=== PATIENT | male | born 1970 | race Caucasian/White ===

== ENCOUNTER 2017-12-04 05:43 | Inpatient (IN) | payer MEDICAID ==
[~2017-12-04] VITALS: Ht 175.3 cm; Wt 112.4 kg
[~2017-12-04 05:43] MED LIST: AMLO2.5T2 PO; ESCI10TA54 PO; GABA-532 PO; PANT-47 PO; THI100T PO; TRAZ-143 PO
[2017-12-04 06:35] LABS: BASOPHILS % (AUTO) 0.1 % (0-1); EOSINOPHILS # (AUTO) 0.1 X10'3 (0-0.9); EOSINOPHILS % (AUTO) 1.7 % (0-6); HEMATOCRIT 44.5 % (42.0-52.0); HEMOGLOBIN 15.5 g/dl (14.0-17.9); LYMPHOCYTES # (AUTO) 1.2 X10'3 (1.1-4.8); LYMPHOCYTES % (AUTO) 15.6 % (21-51); MEAN CORPUSCULAR HEMOGLOBIN 29.9 PG (27.0-31.0); MEAN CORPUSCULAR HGB CONC 34.8 % (33.0-36.5); MEAN PLATELET VOLUME 7.5 FL (7.4-10.4); MONOCYTES # (AUTO) 0.4 X10'3 (0-0.9); MONOCYTES % (AUTO) 5.4 % (2-12); NEUTROPHILS % (AUTO) 77.2 % (42-75); PLATELET COUNT 193 X10'3 (140-440); RED BLOOD COUNT 5.18 X10'6 (4.70-6.10); RED CELL DISTRIBUTION WIDTH 13.7 % (11.5-14.5); WHITE BLOOD COUNT 7.8 X10'3 (4.5-11.0)
[2017-12-04] MEDS ORDERED: octreotide 100mcg/1 ml ampule IV ONE (06:35)
[2017-12-04] MEDS ORDERED: pantoprazole 40MG/NS 100ML BAG 100 ML IV ONE (06:35)
[2017-12-04] MEDS ORDERED: normal saline 1000ML IV soln IVB ONE (06:35)
[2017-12-04] MEDS ORDERED: morphine 4 MG/ML inj SYRINge IV ONE (06:35)
[2017-12-04 06:41] LABS: PARTIAL THROMBOPLASTIN TIME 26 SECONDS (22-32); PROTHROMBIN TIME 10.4 SECONDS (9.0-12.0)
[2017-12-04 06:47] LABS: ALANINE AMINOTRANSFERASE 68 U/L (12-78); ALBUMIN 2.9 G/DL (3.4-5.0); ALBUMIN/GLOBULIN RATIO 0.7 (1.1-1.5); ALKALINE PHOSPHATASE 192 IU/L (46-116); ANION GAP 15 (8-16); ASPARTATE AMINO TRANSFERASE 67 U/L (10-37); BILIRUBIN,TOTAL 0.6 MG/DL (0.1-1.0); BLOOD UREA NITROGEN 7 MG/DL (7-18); BUN/CREATININE RATIO 5.9 (5.4-32.0); CALCIUM 8.2 MG/DL (8.5-10.1); CHLORIDE 92 MMOL/L (99-107); CREATININE 1.18 MG/DL (0.60-1.10); ETHANOL 0.128 GM/DL (0.0-0.010); GLUCOSE 180 MG/DL (70-104); LIPASE 522 U/L (73-393); MAGNESIUM 1.9 MG/DL (1.5-2.4); POTASSIUM 4.4 MMOL/L (3.5-5.1); SODIUM 126 MMOL/L (135-145); TOTAL CARBON DIOXIDE 19.3 MMOL/L (24-32); TOTAL PROTEIN 7.2 G/DL (6.4-8.2); eGFR 67 ML/MIN
[2017-12-04 07:29] LABS: CLARITY,URINE Clear (Clear); GLUCOSE, URINE Negative (Neg); KETONES,URINE Negative (Neg); LEUKOCYTE ESTERASE ,URINE Negative (Neg); NITRITES, URINE Negative (Neg); OCCULT BLOOD,URINE Small (Neg); PROTEIN,URINE 100 mg/dl (Neg); UROBILINOGEN,URINE 0.2 E.U/dL (0.2-1.0)
[2017-12-04] MEDS ORDERED: iohexol 300mg/ml 100ml inj. ONE (07:30)
[2017-12-04 07:35] LABS: COLOR,URINE STRAW (Yellow); UA COLLECTION TYPE URINAL
[2017-12-04 07:37] LABS: BACTERIA,URINE NONE SEEN /HPF (Neg); COARSE GRANULAR CAST 0-3 /LPF (NEGATIVE); MUCUS STRANDS NONE SEEN /LPF (Neg); RBC,URINE 0-2 /HPF (0-2); SQUAMOUS EPITHELIAL CELL,UR FEW /LPF (FEW); WBC,URINE NONE SEEN /HPF (0-4)
[2017-12-04] MEDS ORDERED: ondansetron/PF 4mg/2ml inj IV ONE (07:55)
[2017-12-04] MEDS ORDERED: ondansetron/PF 4mg/2ml inj IV PRN (09:10)
[2017-12-04] MEDS ORDERED: magnesium hydroxide 30ml (MOM) UD suspension PO PRN (09:10)
[2017-12-04] MEDS ORDERED: mag hydrox/Alum hydrox/simeth 30ml oral suspension PO PRN (09:10)
[2017-12-04] MEDS ORDERED: morphine 4 MG/ML inj SYRINge IV PRN (09:10)
[2017-12-04] MEDS ORDERED: acetaminophen 325mg tablet PO PRN (09:10)
[2017-12-04] MEDS: citalopram 20mg tablet PO SCH (10:00)
[2017-12-04] MEDS: ondansetron inj. 24 MG in normal saline 250ml IV soln 228 ML IV SCH (10:10)
[2017-12-04] MEDS: octreotide inj. 1,250 MCG in normal saline 250ml IV soln 243.75 ML IV SCH (10:11)
[2017-12-04] MEDS: normal saline 1000ml 1,000 ML IV SCH ×3 (10:11→22:25)
[2017-12-04 10:23] LABS: HEMOGLOBIN A1C 10.3 % (4.5-6.2)
[2017-12-04] MEDS: pantoprazole 40MG/NS 100ML BAG 100 ML IV SCH ×3 (12:05→21:40)
[2017-12-04] MEDS: morphine 4 MG/ML inj SYRINge IV PRN ×2 (12:05→19:23)
[2017-12-04] MEDS: gabapentin 300mg capsule PO SCH ×2 (13:00→20:54)
[2017-12-04] MEDS ORDERED: metoprolol tartrate 1mg/ml inj IV SCH (14:00)
[2017-12-04] MEDS ORDERED: thiamine inj. 100 MG in normal saline 100ml IV soln 100 ML IV ONE (14:10)
[2017-12-04] MEDS: thiamine 100mg tablet PO SCH (14:17)
[2017-12-04] MEDS: enalaprilat dihydrate 2.5mg/2ml vial IV SCH ×2 (14:31→20:55)
[2017-12-04] MEDS: LORazepam 2 mg/ml vial IV PRN ×2 (14:31→22:33)
[2017-12-04] MEDS: folic acid inj. 2 MG, MVI, adult No.4 with vit. K 10 ML in dextrose 5% water 500ml 500 ML IV SCH ×3 (15:50)
[2017-12-04 18:00] VITALS: BP 126/88
[2017-12-04 18:05] VITALS: BP 145/77
[2017-12-04] MEDS ORDERED: METOPROLOL TARTRATE IV SCH (20:00)
[2017-12-04] MEDS ORDERED: NORMAL SALINE IV SCH (20:00)
[2017-12-04] MEDS: metoprolol tartrate 12.5mg (1/2 tablet) PO SCH (20:54)
[2017-12-04] MEDS: NYSTATIN CREAM - 30GM TUBE TP SCH (20:54)
[2017-12-04] MEDS: traZODone 50mg tablet PO SCH (20:54)
[2017-12-04] MEDS ORDERED: MESSAGE TO PHARMACY PO ONE (22:15)
[2017-12-04] MEDS ORDERED: dextrose ORAL solution 15 GM/59 ML bottle PO PRN ×2 (22:15)
[2017-12-04] MEDS ORDERED: glucagon, human recombinant 1mg kit SUBCUT PRN (22:15)
[2017-12-04] MEDS ORDERED: dextrose 50%-water 50ml dispensing syringe IV PRN ×2 (22:15)
[2017-12-05] VITALS (8 sets, daily range): BP systolic 103–190; BP diastolic 70–100
[2017-12-05] MEDS: pantoprazole 40MG/NS 100ML BAG 100 ML IV SCH ×6 (01:40→23:45)
[2017-12-05] MEDS: enalaprilat dihydrate 2.5mg/2ml vial IV SCH ×4 (01:40→21:06)
[2017-12-05] MEDS: normal saline 1000ml 1,000 ML IV SCH ×4 (05:11→23:44)
[2017-12-05 05:26] LABS: BASOPHILS % (AUTO) 0.3 % (0-1); EOSINOPHILS # (AUTO) 0.2 X10'3 (0-0.9); EOSINOPHILS % (AUTO) 2.8 % (0-6); HEMATOCRIT 41.3 % (42.0-52.0); HEMOGLOBIN 14.4 g/dl (14.0-17.9); LYMPHOCYTES # (AUTO) 1.4 X10'3 (1.1-4.8); LYMPHOCYTES % (AUTO) 19.4 % (21-51); MEAN CORPUSCULAR HEMOGLOBIN 30.4 PG (27.0-31.0); MEAN CORPUSCULAR VOLUME 87.1 FL (78-98); MEAN PLATELET VOLUME 7.8 FL (7.4-10.4); MONOCYTES # (AUTO) 0.5 X10'3 (0-0.9); MONOCYTES % (AUTO) 7.2 % (2-12); NEUTROPHILS # (AUTO) 5.2 X10'3 (1.8-7.7); NEUTROPHILS % (AUTO) 70.3 % (42-75); PLATELET COUNT 156 X10'3 (140-440); RED BLOOD COUNT 4.74 X10'6 (4.70-6.10); RED CELL DISTRIBUTION WIDTH 14.1 % (11.5-14.5); WHITE BLOOD COUNT 7.4 X10'3 (4.5-11.0)
[2017-12-05 05:34] LABS: PROTHROMBIN TIME 10.8 SECONDS (9.0-12.0)
[2017-12-05 05:45] LABS: ALANINE AMINOTRANSFERASE 55 U/L (12-78); ALBUMIN 2.7 G/DL (3.4-5.0); ALBUMIN/GLOBULIN RATIO 0.7 (1.1-1.5); ALKALINE PHOSPHATASE 172 IU/L (46-116); AMYLASE 52 U/L (25-115); ANION GAP 9 (8-16); ASPARTATE AMINO TRANSFERASE 38 U/L (10-37); BILIRUBIN,TOTAL 0.7 MG/DL (0.1-1.0); BLOOD UREA NITROGEN 14 MG/DL (7-18); BUN/CREATININE RATIO 9.7 (5.4-32.0); CALCIUM 8.3 MG/DL (8.5-10.1); CHLORIDE 101 MMOL/L (99-107); CHOL/HDL RATIO 2.3 (0.00-4.99); CHOLESTEROL 169 MG/DL (0-200); CREATININE 1.45 MG/DL (0.60-1.10); GLUCOSE 188 MG/DL (70-104); HDL CHOLESTEROL 75 MG/DL (35-60); LDL CHOLESTEROL 71 MG/DL (50-100); LIPASE 427 U/L (73-393); MAGNESIUM 2.1 MG/DL (1.5-2.4); PHOSPHORUS 2.7 MG/DL (2.3-4.5); POTASSIUM 4.7 MMOL/L (3.5-5.1); SODIUM 135 MMOL/L (135-145); TOTAL CARBON DIOXIDE 24.9 MMOL/L (24-32); TOTAL PROTEIN 6.6 G/DL (6.4-8.2); TRIGLYCERIDES 131 MG/DL (20-135); eGFR 53 ML/MIN
[2017-12-05] MEDS: morphine 4 MG/ML inj SYRINge IV PRN ×2 (07:37→21:36)
[2017-12-05] MEDS: citalopram 20mg tablet PO SCH (07:40)
[2017-12-05] MEDS: metoprolol tartrate 12.5mg (1/2 tablet) PO SCH ×2 (07:40→21:06)
[2017-12-05] MEDS: atorvastatin 20mg tablet PO SCH (07:40)
[2017-12-05] MEDS: gabapentin 300mg capsule PO SCH ×3 (07:41→21:07)
[2017-12-05] MEDS: thiamine 100mg tablet PO SCH (07:41)
[2017-12-05] MEDS: NYSTATIN CREAM - 30GM TUBE TP SCH ×2 (08:00→22:54)
[2017-12-05] MEDS ORDERED: thiamine 100mg tablet PO SCH (08:00)
[2017-12-05] MEDS: ondansetron inj. 24 MG in normal saline 250ml IV soln 228 ML IV SCH (09:05)
[2017-12-05] MEDS: folic acid inj. 2 MG, MVI, adult No.4 with vit. K 10 ML in dextrose 5% water 500ml 500 ML IV SCH ×3 (09:08)
[2017-12-05] MEDS: LORazepam 2 mg/ml vial IV PRN ×3 (09:09→21:34)
[2017-12-05] MEDS: octreotide inj. 1,250 MCG in normal saline 250ml IV soln 243.75 ML IV SCH (09:11)
[2017-12-05] MEDS ORDERED: fentaNYL/PF 50MCG/1 ML 2ML syringe ONE ×2 (09:46→10:06)
[2017-12-05] MEDS ORDERED: LIDOcaine Viscous 15ml cup ONE ×2 (09:47→10:06)
[2017-12-05] MEDS ORDERED: MIDAZolam 5mg/ml 2ml vial ONE ×2 (09:47→10:06)
[2017-12-05] MEDS: insulin Lispro (HumaLOG) vial - multi-dose SQ SCH ×2 (13:31→22:52)
[2017-12-05] MEDS ORDERED: amLODIPine 5mg tablet PO ONE (14:10)
[2017-12-05] MEDS: traZODone 50mg tablet PO SCH (21:07)
[2017-12-05] MEDS: insulin glargine (Lantus) pen - multi-dose SQ SCH (22:54)
[2017-12-06] VITALS (9 sets, daily range): BP systolic 121–195; BP diastolic 86–106
[2017-12-06] MEDS: enalaprilat dihydrate 2.5mg/2ml vial IV SCH ×4 (02:41→21:27)
[2017-12-06] MEDS: LORazepam 2 mg/ml vial IV PRN (03:17)
[2017-12-06] MEDS: morphine 4 MG/ML inj SYRINge IV PRN ×3 (03:17→21:25)
[2017-12-06 05:17] LABS: BASOPHILS % (AUTO) 0.2 % (0-1); EOSINOPHILS # (AUTO) 0.2 X10'3 (0-0.9); EOSINOPHILS % (AUTO) 3.6 % (0-6); HEMATOCRIT 41.7 % (42.0-52.0); HEMOGLOBIN 14.3 g/dl (14.0-17.9); LYMPHOCYTES # (AUTO) 1.3 X10'3 (1.1-4.8); MEAN CORPUSCULAR HEMOGLOBIN 30.1 PG (27.0-31.0); MEAN CORPUSCULAR HGB CONC 34.4 % (33.0-36.5); MEAN CORPUSCULAR VOLUME 87.5 FL (78-98); MEAN PLATELET VOLUME 7.7 FL (7.4-10.4); MONOCYTES # (AUTO) 0.5 X10'3 (0-0.9); MONOCYTES % (AUTO) 7.5 % (2-12); NEUTROPHILS # (AUTO) 4.2 X10'3 (1.8-7.7); NEUTROPHILS % (AUTO) 67.7 % (42-75); PLATELET COUNT 140 X10'3 (140-440); RED BLOOD COUNT 4.76 X10'6 (4.70-6.10); RED CELL DISTRIBUTION WIDTH 13.8 % (11.5-14.5); WHITE BLOOD COUNT 6.2 X10'3 (4.5-11.0)
[2017-12-06 05:30] LABS: PROTHROMBIN TIME 10.5 SECONDS (9.0-12.0)
[2017-12-06 05:43] LABS: ALANINE AMINOTRANSFERASE 46 U/L (12-78); ALBUMIN 2.7 G/DL (3.4-5.0); ALBUMIN/GLOBULIN RATIO 0.7 (1.1-1.5); ALKALINE PHOSPHATASE 166 IU/L (46-116); AMYLASE 39 U/L (25-115); ANION GAP 9 (8-16); ASPARTATE AMINO TRANSFERASE 30 U/L (10-37); BILIRUBIN,TOTAL 0.5 MG/DL (0.1-1.0); BLOOD UREA NITROGEN 10 MG/DL (7-18); BUN/CREATININE RATIO 7.4 (5.4-32.0); CALCIUM 8.2 MG/DL (8.5-10.1); CHLORIDE 103 MMOL/L (99-107); CREATININE 1.35 MG/DL (0.60-1.10); GLUCOSE 204 MG/DL (70-104); LIPASE 258 U/L (73-393); MAGNESIUM 1.9 MG/DL (1.5-2.4); PHOSPHORUS 2.8 MG/DL (2.3-4.5); POTASSIUM 4.2 MMOL/L (3.5-5.1); SODIUM 138 MMOL/L (135-145); TOTAL CARBON DIOXIDE 25.7 MMOL/L (24-32); TOTAL PROTEIN 6.6 G/DL (6.4-8.2); eGFR 57 ML/MIN
[2017-12-06] MEDS: pantoprazole 40MG/NS 100ML BAG 100 ML IV SCH (06:06)
[2017-12-06] MEDS: normal saline 1000ml 1,000 ML IV SCH ×3 (06:06→21:35)
[2017-12-06] MEDS: metoprolol tartrate 12.5mg (1/2 tablet) PO SCH ×2 (07:25→21:25)
[2017-12-06] MEDS: citalopram 20mg tablet PO SCH (07:25)
[2017-12-06] MEDS: thiamine 100mg tablet PO SCH (07:25)
[2017-12-06] MEDS: atorvastatin 20mg tablet PO SCH (07:26)
[2017-12-06] MEDS: gabapentin 300mg capsule PO SCH ×3 (07:26→21:26)
[2017-12-06] MEDS: folic acid 1mg tablet PO SCH (07:26)
[2017-12-06] MEDS: NYSTATIN CREAM - 30GM TUBE TP SCH ×2 (07:28→21:27)
[2017-12-06] MEDS: folic acid inj. 2 MG, MVI, adult No.4 with vit. K 10 ML in dextrose 5% water 500ml 500 ML IV SCH ×3 (07:31)
[2017-12-06] MEDS ORDERED: amLODIPine 5mg tablet PO SCH (08:00)
[2017-12-06] MEDS: ondansetron inj. 24 MG in normal saline 250ml IV soln 228 ML IV SCH (10:01)
[2017-12-06] MEDS: insulin Lispro (HumaLOG) vial - multi-dose SQ SCH (10:04)
[2017-12-06] MEDS ORDERED: amLODIPine 5mg tablet PO ONE (12:56)
[2017-12-06] MEDS ORDERED: hydrALAZINE 20mg/ml inj. IV ONE (15:25)
[2017-12-06] MEDS: traZODone 50mg tablet PO SCH (21:25)
[2017-12-06] MEDS: pantoprazole 40mg Tablet.DR PO SCH (21:26)
[2017-12-06] MEDS: insulin glargine (Lantus) pen - multi-dose SQ SCH (21:30)
[2017-12-07] VITALS: BP 145/76
[2017-12-07 03:00] VITALS: BP 139/69
[2017-12-07] MEDS: morphine 4 MG/ML inj SYRINge IV PRN ×2 (03:16→09:50)
[2017-12-07] MEDS: enalaprilat dihydrate 2.5mg/2ml vial IV SCH ×2 (03:17→08:10)
[2017-12-07] MEDS: normal saline 1000ml 1,000 ML IV SCH (03:19)
[2017-12-07 05:09] LABS: BASOPHILS % (AUTO) 0.2 % (0-1); EOSINOPHILS # (AUTO) 0.2 X10'3 (0-0.9); EOSINOPHILS % (AUTO) 3.4 % (0-6); HEMATOCRIT 39.8 % (42.0-52.0); LYMPHOCYTES # (AUTO) 1.5 X10'3 (1.1-4.8); LYMPHOCYTES % (AUTO) 22.4 % (21-51); MEAN CORPUSCULAR HEMOGLOBIN 30.4 PG (27.0-31.0); MEAN CORPUSCULAR VOLUME 86.7 FL (78-98); MEAN PLATELET VOLUME 7.5 FL (7.4-10.4); MONOCYTES # (AUTO) 0.5 X10'3 (0-0.9); MONOCYTES % (AUTO) 8.2 % (2-12); NEUTROPHILS # (AUTO) 4.4 X10'3 (1.8-7.7); NEUTROPHILS % (AUTO) 65.8 % (42-75); PLATELET COUNT 138 X10'3 (140-440); RED BLOOD COUNT 4.59 X10'6 (4.70-6.10); RED CELL DISTRIBUTION WIDTH 13.8 % (11.5-14.5); WHITE BLOOD COUNT 6.6 X10'3 (4.5-11.0)
[2017-12-07 05:15] LABS: PROTHROMBIN TIME 10.1 SECONDS (9.0-12.0)
[2017-12-07 05:23] LABS: ALANINE AMINOTRANSFERASE 50 U/L (12-78); ALBUMIN 2.7 G/DL (3.4-5.0); ALBUMIN/GLOBULIN RATIO 0.7 (1.1-1.5); ALKALINE PHOSPHATASE 156 IU/L (46-116); AMYLASE 39 U/L (25-115); ANION GAP 11 (8-16); ASPARTATE AMINO TRANSFERASE 34 U/L (10-37); BILIRUBIN,TOTAL 0.5 MG/DL (0.1-1.0); BLOOD UREA NITROGEN 10 MG/DL (7-18); BUN/CREATININE RATIO 7.4 (5.4-32.0); CALCIUM 8.4 MG/DL (8.5-10.1); CHLORIDE 103 MMOL/L (99-107); CREATININE 1.35 MG/DL (0.60-1.10); GLUCOSE 175 MG/DL (70-104); LIPASE 232 U/L (73-393); MAGNESIUM 1.6 MG/DL (1.5-2.4); PHOSPHORUS 3.2 MG/DL (2.3-4.5); POTASSIUM 3.8 MMOL/L (3.5-5.1); SODIUM 140 MMOL/L (135-145); TOTAL CARBON DIOXIDE 26.2 MMOL/L (24-32); TOTAL PROTEIN 6.6 G/DL (6.4-8.2); eGFR 57 ML/MIN
[2017-12-07 07:50] VITALS: BP 157/85
[2017-12-07] MEDS: gabapentin 300mg capsule PO SCH (07:58)
[2017-12-07] MEDS: metoprolol tartrate 12.5mg (1/2 tablet) PO SCH (07:59)
[2017-12-07] MEDS ORDERED: amLODIPine 5mg tablet PO SCH (08:00)
[2017-12-07] MEDS ORDERED: multivitamins, therapeutics tablet PO SCH (08:00)
[2017-12-07] MEDS: pantoprazole 40mg Tablet.DR PO SCH (08:01)
[2017-12-07] MEDS: folic acid 1mg tablet PO SCH (08:01)
[2017-12-07] MEDS: thiamine 100mg tablet PO SCH (08:01)
[2017-12-07] MEDS: citalopram 20mg tablet PO SCH (08:01)
[2017-12-07] MEDS: atorvastatin 20mg tablet PO SCH (08:01)
[2017-12-07] MEDS: NYSTATIN CREAM - 30GM TUBE TP SCH (08:03)
[2017-12-07] MEDS: insulin Lispro (HumaLOG) vial - multi-dose SQ SCH (09:14)
[2017-12-07 11:00] VITALS: BP 147/87
[2017-12-07] MEDS ORDERED: GLIP5TAB13 PO (12:22)
[2017-12-07] MEDS ORDERED: METO-395 PO (12:22)
[2017-12-07] MEDS ORDERED: PANT-47 PO (12:22)
== END 2017-12-07 13:24 | disposition home or self-care (01) | DRG 243 ==
LOC: ER 05:44 → ED HOLD 09:07 → EDBEDREQ 17:07 → SUR 3N 18:12
PROVIDERS: ADMIT Legal Medicine; ATTEND Family Medicine
PROC: 0DB58ZX Excision of Esophagus, Via Natural or Artificial Opening Endoscopic, Diagnostic (ICD-10-PCS; principal; 2017-12-05)
DX: K21.0 Gastro-esophageal reflux disease with esophagitis (principal); N17.0 Acute kidney failure with tubular necrosis; K85.90 Acute pancreatitis without necrosis or infection, unspecified; E11.22 Type 2 diabetes mellitus with diabetic chronic kidney disease; K70.0 Alcoholic fatty liver; K70.30 Alcoholic cirrhosis of liver without ascites; E87.1 Hypo-osmolality and hyponatremia; K22.8 Other specified diseases of esophagus; K22.10 Ulcer of esophagus without bleeding; F17.210 Nicotine dependence, cigarettes, uncomplicated; E86.0 Dehydration; F10.20 Alcohol dependence, uncomplicated; F12.90 Cannabis use, unspecified, uncomplicated; G40.909 Epilepsy, unspecified, not intractable, without status epilepticus; F32.9 Major depressive disorder, single episode, unspecified; G89.29 Other chronic pain; R29.890 Loss of height; M54.9 Dorsalgia, unspecified; Z60.2 Problems related to living alone; I12.9 Hypertensive chronic kidney disease with stage 1 through stage 4 chronic kidney disease, or unspecified chronic kidney disease; N18.9 Chronic kidney disease, unspecified; Z77.120 Contact with and (suspected) exposure to mold (toxic); Z80.1 Family history of malignant neoplasm of trachea, bronchus and lung; Z80.42 Family history of malignant neoplasm of prostate; Z99.3 Dependence on wheelchair; Z79.4 Long term (current) use of insulin
CPT/HCPCS: 36415; 43239; 71045; 74177; 80053; 80061; 80320; 81001; 82140; 82150; 82948; 83036; 83690; 83735; 84100; 84484; 85025; 85610; 85730; 86885; 86900; 86901; 87070; 88305; 88312; 93005; 96361; 96365; 96375; 97110; 97116; 97162; 99285; A4620; C9113; G0500; J0360; J1815; J2060; J2250; J2270; J2354; J2405; J3010; J3490; J7030; J7040; J7060; Q9967

== ENCOUNTER 2017-12-12 23:40 | Emergency (ER) | payer MEDICAID, OTHER ==
[~2017-12-12] VITALS: Ht 180.3 cm; Wt 113.6 kg
[~2017-12-12 23:40] MED LIST changes: +GLIP5TAB13 PO; +METO-395 PO
[2017-12-13] MEDS ORDERED: thiamine 100mg/ml 2ml inj. IV ONE (00:05)
[2017-12-13] MEDS ORDERED: normal saline 1000ML IV soln IVB ONE (00:05)
[2017-12-13 01:04] LABS: PARTIAL THROMBOPLASTIN TIME 27 SECONDS (22-32); PROTHROMBIN TIME 10.3 SECONDS (9.0-12.0)
[2017-12-13 01:05] LABS: BASOPHILS # (AUTO) 0.1 X10'3 (0-0.2); BASOPHILS % (AUTO) 0.7 % (0-1); EOSINOPHILS % (AUTO) 0.2 % (0-6); HEMATOCRIT 50.2 % (42.0-52.0); HEMOGLOBIN 16.5 g/dl (14.0-17.9); LYMPHOCYTES # (AUTO) 1.8 X10'3 (1.1-4.8); MEAN CORPUSCULAR HEMOGLOBIN 28.9 PG (27.0-31.0); MEAN CORPUSCULAR HGB CONC 32.9 % (33.0-36.5); MEAN CORPUSCULAR VOLUME 87.7 FL (78-98); MEAN PLATELET VOLUME 7.9 FL (7.4-10.4); MONOCYTES % (AUTO) 7.3 % (2-12); NEUTROPHILS # (AUTO) 10.2 X10'3 (1.8-7.7); NEUTROPHILS % (AUTO) 77.8 % (42-75); PLATELET COUNT 238 X10'3 (140-440); RED BLOOD COUNT 5.72 X10'6 (4.70-6.10); RED CELL DISTRIBUTION WIDTH 13.5 % (11.5-14.5); WHITE BLOOD COUNT 13.1 X10'3 (4.5-11.0)
[2017-12-13 01:18] LABS: ALANINE AMINOTRANSFERASE 56 U/L (12-78); ALBUMIN 3.4 G/DL (3.4-5.0); ALBUMIN/GLOBULIN RATIO 0.8 (1.1-1.5); ALKALINE PHOSPHATASE 208 IU/L (46-116); ANION GAP 16 (8-16); ASPARTATE AMINO TRANSFERASE 32 U/L (10-37); BILIRUBIN,TOTAL 0.5 MG/DL (0.1-1.0); BLOOD UREA NITROGEN 10 MG/DL (7-18); BUN/CREATININE RATIO 8.5 (5.4-32.0); CALCIUM 8.4 MG/DL (8.5-10.1); CHLORIDE 96 MMOL/L (99-107); CREATININE 1.17 MG/DL (0.60-1.10); ETHANOL 0.255 GM/DL (0.0-0.010); GLUCOSE 176 MG/DL (70-104); MAGNESIUM 1.9 MG/DL (1.5-2.4); PHOSPHORUS 2.2 MG/DL (2.3-4.5); POTASSIUM 4.4 MMOL/L (3.5-5.1); SODIUM 133 MMOL/L (135-145); TOTAL CARBON DIOXIDE 21.3 MMOL/L (24-32); TOTAL PROTEIN 7.8 G/DL (6.4-8.2); eGFR 67 ML/MIN
[2017-12-13 01:21] LABS: ACETAMINOPHEN < 2.0 UG/ML (10-30)
[2017-12-13 01:33] LABS: CLARITY,URINE CLEAR (Clear); COLOR,URINE YELLOW (Yellow); GLUCOSE, URINE NEGATIVE (Neg); KETONES,URINE NEGATIVE (Neg); LEUKOCYTE ESTERASE ,URINE NEGATIVE (Neg); NITRITES, URINE NEGATIVE (Neg); OCCULT BLOOD,URINE SMALL (Neg); PH,URINE 5.5 (4.8-8.0); PROTEIN,URINE 30 mg/dl (Neg); UROBILINOGEN,URINE 0.2 E.U/dL (0.2-1.0)
[2017-12-13 01:39] LABS: UA COLLECTION TYPE STRAIGHT CATH
[2017-12-13 01:40] LABS: BACTERIA,URINE NONE SEEN /HPF (Neg); RBC,URINE 0-2 /HPF (0-2); SQUAMOUS EPITHELIAL CELL,UR FEW /LPF (FEW); URINE AMPHETAMINE SCREEN NEGATIVE (Neg); URINE BARBITUATE SCREEN NEGATIVE (Neg); URINE BENZODIAZEPINES SCREEN NEGATIVE (Neg); URINE CANNABINOID SCREEN NEGATIVE (Neg); URINE COCAINE SCREEN NEGATIVE (Neg); URINE METHADONE SCREEN NEGATIVE (Neg); URINE OPIATE SCREEN NEGATIVE (Neg); URINE PHENCYCLIDINE SCREEN NEGATIVE (Neg); WBC,URINE NONE SEEN /HPF (0-4)
[2017-12-13] MEDS ORDERED: ondansetron/PF 4mg/2ml inj IV ONE (02:10)
[2017-12-13 03:04] VITALS: BP 141/62
== END 2017-12-13 03:06 | disposition home or self-care (01) ==
LOC: ER 23:40
DX: F10.229 Alcohol dependence with intoxication, unspecified (principal); I10 Essential (primary) hypertension; E11.9 Type 2 diabetes mellitus without complications; G89.29 Other chronic pain; F12.10 Cannabis abuse, uncomplicated; F14.10 Cocaine abuse, uncomplicated; Z60.2 Problems related to living alone; Z79.899 Other long term (current) drug therapy; Y90.0 Blood alcohol level of less than 20 mg/100 ml
CPT/HCPCS: 36415; 70450; 80053; 80305; 80320; 80329; 81001; 83735; 84100; 84443; 85025; 85610; 85730; 93005; 96361; 96374; 96375; 99285; A4353; J2405; J3411; J7030

== ENCOUNTER 2020-03-07 20:48 | Inpatient (IN) | payer MEDICARE ==
[~2020-03-07] VITALS: Ht 175.3 cm; Wt 121.2 kg
[~2020-03-07 20:48] MED LIST changes: -ESCI10TA54 PO; +ESCI10TA61 PO; -TRAZ-143 PO; +TRAZ-251 PO
[2020-03-07 21:31] LABS: BASOPHILS # (AUTO) 0.1 X10'3 (0-0.2); BASOPHILS % (AUTO) 0.7 % (0-1); EOSINOPHILS # (AUTO) 0.1 X10'3 (0-0.9); EOSINOPHILS % (AUTO) 0.9 % (0-6); HEMATOCRIT 37.2 % (42.0-52.0); HEMOGLOBIN 12.2 g/dl (14.0-17.9); LYMPHOCYTES # (AUTO) 1.6 X10'3 (1.1-4.8); LYMPHOCYTES % (AUTO) 12.8 % (21-51); MEAN CORPUSCULAR HEMOGLOBIN 29.2 PG (27.0-31.0); MEAN CORPUSCULAR HGB CONC 32.8 g/dL (33.0-36.5); MEAN CORPUSCULAR VOLUME 88.9 FL (78-98); MEAN PLATELET VOLUME 8.7 FL (7.4-10.4); MONOCYTES # (AUTO) 1.4 X10'3 (0-0.9); MONOCYTES % (AUTO) 11.9 % (2-12); NEUTROPHILS % (AUTO) 73.7 % (42-75); PLATELET COUNT 232 X10'3 (140-440); RED BLOOD COUNT 4.18 X10'6 (4.70-6.10); RED CELL DISTRIBUTION WIDTH 13.7 % (11.5-14.5); WHITE BLOOD COUNT 12.2 X10'3 (4.5-11.0)
[2020-03-07 21:42] LABS: ALANINE AMINOTRANSFERASE 22 U/L (12-78); ALBUMIN/GLOBULIN RATIO 0.4 (1.1-1.5); ALKALINE PHOSPHATASE 142 IU/L (46-116); ANION GAP 11 (8-16); ASPARTATE AMINO TRANSFERASE 19 U/L (10-37); BILIRUBIN,TOTAL 0.6 MG/DL (0.1-1.0); BLOOD UREA NITROGEN 25 MG/DL (7-18); BUN/CREATININE RATIO 13.6 (5.4-32.0); CHLORIDE 98 MMOL/L (99-107); CREATININE 1.84 MG/DL (0.60-1.10); GLUCOSE 326 MG/DL (70-104); SODIUM 131 MMOL/L (135-145); TOTAL CARBON DIOXIDE 22.2 MMOL/L (24-32); TOTAL PROTEIN 7.2 G/DL (6.4-8.2); eGFR 40 ML/MIN
[2020-03-07 21:54] LABS: TOTAL CELLS COUNTED 100
[2020-03-07 21:55] LABS: PLATELET ESTIMATE NORMAL
[2020-03-07] MEDS ORDERED: VANCOMYCIN 1,500MG inj. 1,500 MG in normal saline 500ml IV soln 500 ML IV STA (23:18)
[2020-03-07] MEDS ORDERED: normal saline 1000ML IV soln IVB ONE (23:35)
[2020-03-07 23:43] LABS: ETHANOL < 0.010 GM/DL (0.0-0.010); LIPASE 120 U/L (73-393); MAGNESIUM 1.6 MG/DL (1.5-2.4)
[2020-03-07] MEDS ORDERED: iohexol 300mg/ml 100ml inj. ONE (23:45)
[2020-03-07 23:47] LABS: PARTIAL THROMBOPLASTIN TIME 29 SECONDS (22-32)
[2020-03-07] MEDS ORDERED: LORazepam 2 mg/ml vial IV ONE (23:55)
[2020-03-08] VITALS (28 sets, daily range): BP systolic 114–161; BP diastolic 60–87
[2020-03-08] LABS: ABG BASE EXCESS -2.3 mmol/L (-2.0-3.0); ABG HCO3 21.1 mmol/L (22.0-26.0); ABG OXYGEN SATURATION 95.9 % (95-98); ABG PCO2 (T) 33.8 mmHg (35.0-45.0); ABG PO2 (T) 88.7 mmHg (83-108); ALLEN'S TEST POSITIVE; FCOHb 1.7 % (0.5-1.5); FMetHb 0.1 % (0.3-1.12); FO2Hb 94.2 % (94-100); PATIENT TEMPERATURE 38.2; TOTAL HEMOGLOBIN 12.2 G/dl (14.0-17.9)
[2020-03-08 00:48] LABS: CLARITY,URINE SLIGHTLY CLOUDY (Clear); COLOR,URINE YELLOW (Yellow); GLUCOSE, URINE >=1000 mg/dl (Neg); KETONES,URINE TRACE mg/dl (Neg); LEUKOCYTE ESTERASE ,URINE NEGATIVE (Neg); NITRITES, URINE NEGATIVE (Neg); OCCULT BLOOD,URINE TRACE-INTACT (Neg); PH,URINE 5.5 (4.8-8.0); PROTEIN,URINE >=300 mg/dl (Neg); UA COLLECTION TYPE URINAL
[2020-03-08 00:53] LABS: BACTERIA,URINE NONE SEEN /HPF (Neg); RBC,URINE NONE SEEN /HPF (0-2); SQUAMOUS EPITHELIAL CELL,UR FEW /LPF (FEW); WBC,URINE NONE SEEN /HPF (0-4)
[2020-03-08 01:01] LABS: URINE AMPHETAMINE SCREEN NEGATIVE (Neg); URINE BARBITUATE SCREEN NEGATIVE (Neg); URINE BENZODIAZEPINES SCREEN NEGATIVE (Neg); URINE CANNABINOID SCREEN NEGATIVE (Neg); URINE COCAINE SCREEN NEGATIVE (Neg); URINE METHADONE SCREEN NEGATIVE (Neg); URINE OPIATE SCREEN NEGATIVE (Neg); URINE PHENCYCLIDINE SCREEN NEGATIVE (Neg)
[2020-03-08] MEDS ORDERED: piperacillin/tazo 3.375gm/50ml 50 ML IV ONE (01:30)
[2020-03-08] MEDS ORDERED: clindamycin 600mg/D5W 50ml 50 ML IV ONE (01:30)
[2020-03-08] MEDS ORDERED: magnesium 4gm in 100ml NS 100 ML IV PRN (03:00)
[2020-03-08] MEDS ORDERED: glucagon, human recombinant 1mg kit SUBCUT PRN (03:00)
[2020-03-08] MEDS ORDERED: ipratropium/albuterol 3ml nebule NEB PRN (03:00)
[2020-03-08] MEDS ORDERED: magnesium 2GM in 50ml NS 50 ML IV PRN (03:00)
[2020-03-08] MEDS ORDERED: potassium CL 10mEq/100ml bag 100 ML IV PRN ×2 (03:00)
[2020-03-08] MEDS ORDERED: MESSAGE TO PHARMACY PO ONE (03:00)
[2020-03-08] MEDS ORDERED: magnesium Cl slow-release 64mg tablet PO PRN (03:00)
[2020-03-08] MEDS ORDERED: nitroGLYCERIN 0.4mg SUBLingual tab SL PRN (03:00)
[2020-03-08] MEDS ORDERED: dextrose ORAL solution 15 GM/59 ML bottle PO PRN ×2 (03:00)
[2020-03-08] MEDS ORDERED: acetaminophen 325mg tablet PO PRN (03:00)
[2020-03-08] MEDS ORDERED: LIDOcaine 2% 10ml TOPICAL JELLY (Urojet) TP ONE (03:00)
[2020-03-08] MEDS ORDERED: potassium Cl 20 mEq SR tablet PO PRN ×2 (03:00)
[2020-03-08] MEDS ORDERED: dextrose 50%-water 50ml dispensing syringe IV PRN ×2 (03:00)
[2020-03-08] MEDS ORDERED: acetaminophen 650mg rectal suppository RC PRN (03:00)
[2020-03-08] MEDS ORDERED: NO HOME MEDS (03:02)
[2020-03-08 03:47] LABS: HEMOGLOBIN A1C > 14.0 % (4.5-6.2)
[2020-03-08 03:48] LABS: ALANINE AMINOTRANSFERASE 22 U/L (12-78); ALBUMIN 1.8 G/DL (3.4-5.0); ALBUMIN/GLOBULIN RATIO 0.4 (1.1-1.5); ALKALINE PHOSPHATASE 131 IU/L (46-116); ANION GAP 9 (8-16); ASPARTATE AMINO TRANSFERASE 19 U/L (10-37); BILIRUBIN,TOTAL 0.5 MG/DL (0.1-1.0); BLOOD UREA NITROGEN 23 MG/DL (7-18); BUN/CREATININE RATIO 13.6 (5.4-32.0); CALCIUM 8.4 MG/DL (8.5-10.1); CHLORIDE 102 MMOL/L (99-107); CREATININE 1.69 MG/DL (0.60-1.10); GLUCOSE 259 MG/DL (70-104); MAGNESIUM 1.6 MG/DL (1.5-2.4); PHOSPHORUS 3.2 MG/DL (2.3-4.5); POTASSIUM 3.6 MMOL/L (3.5-5.1); SODIUM 134 MMOL/L (135-145); TOTAL CARBON DIOXIDE 23.1 MMOL/L (24-32); TOTAL PROTEIN 6.7 G/DL (6.4-8.2); eGFR 44 ML/MIN
--- NOTE | 2020-03-08 05:15 | NUR ---
Patient in room CICU 2009. I have received report from Inge daniels and had the opportunity to ask questions and assume patient care.
--- NOTE | 2020-03-08 05:25 | NUR ---
pt arrived to icu bed 10 via gurney. Pt alert and answering questions appropriately. pt oriented to bed, call light, tv, and visitor policy. pt verbalized understanding.
[2020-03-08] MEDS: normal saline 1000ml 1,000 ML IV SCH ×3 (05:44→18:04)
[2020-03-08] MEDS: HYDROmorphone 1 mg/ml syringe IV PRN ×3 (05:51→21:48)
--- NOTE | 2020-03-08 06:15 | NUR ---
Patient in room CICU 2009. I have received report from ELVIA and had the opportunity to ask questions and assume patient care.
[2020-03-08 06:31] LABS: BASOPHILS % (AUTO) 0.4 % (0-1); EOSINOPHILS # (AUTO) 0.2 X10'3 (0-0.9); HEMOGLOBIN 12.2 g/dl (14.0-17.9); LYMPHOCYTES # (AUTO) 1.6 X10'3 (1.1-4.8); LYMPHOCYTES % (AUTO) 15.5 % (21-51); MEAN CORPUSCULAR HEMOGLOBIN 30.1 PG (27.0-31.0); MEAN CORPUSCULAR HGB CONC 33.9 g/dL (33.0-36.5); MEAN CORPUSCULAR VOLUME 88.8 FL (78-98); MEAN PLATELET VOLUME 8.9 FL (7.4-10.4); MONOCYTES # (AUTO) 1.1 X10'3 (0-0.9); MONOCYTES % (AUTO) 10.9 % (2-12); NEUTROPHILS # (AUTO) 7.4 X10'3 (1.8-7.7); NEUTROPHILS % (AUTO) 71.2 % (42-75); PLATELET COUNT 213 X10'3 (140-440); RED BLOOD COUNT 4.06 X10'6 (4.70-6.10); RED CELL DISTRIBUTION WIDTH 13.5 % (11.5-14.5); WHITE BLOOD COUNT 10.4 X10'3 (4.5-11.0)
[2020-03-08] MEDS: clindamycin 600mg/D5W 50ml 50 ML IV SCH ×3 (07:45→21:36)
[2020-03-08] MEDS: pantoprazole 40 MG vial IV SCH (07:46)
[2020-03-08] MEDS: piperacillin/tazo 3.375gm/50ml 50 ML IV SCH ×2 (07:46→18:04)
[2020-03-08] MEDS: docusate sod 100mg capsule PO SCH ×2 (08:00→21:45)
[2020-03-08] MEDS: K, MAG and/or Phos replacement - Verify level? MC SCH (08:18)
[2020-03-08] MEDS ORDERED: VANCOMYCIN 1,500MG inj. 1,500 MG in normal saline 500ml IV soln 500 ML IV SCH (09:00)
[2020-03-08] MEDS: insulin Lispro (HumaLOG) vial - multi-dose SQ SCH ×3 (10:26→21:30)
[2020-03-08] MEDS ORDERED: ringers solution, lacted 1,000 ML IV SCH ×2 (11:37→16:24)
[2020-03-08] MEDS ORDERED: proCHLORperazine 10 MG/2 ml inj IV PRN ×2 (11:40→16:25)
[2020-03-08] MEDS ORDERED: ondansetron/PF 4mg/2ml inj IV PRN ×2 (11:40→16:25)
[2020-03-08] MEDS ORDERED: morphine 4 MG/ML inj SYRINge IV PRN ×2 (11:40→16:25)
[2020-03-08] MEDS ORDERED: morphine 2 MG/ML inj. syringe IV PRN ×2 (11:40→16:25)
[2020-03-08] MEDS ORDERED: meperidine/PF 25mg/ml syringe IV PRN ×6 (11:40→16:25)
[2020-03-08] MEDS ORDERED: insulin Lispro (HumaLOG) vial - multi-dose SQ ONE (12:25)
[2020-03-08] MEDS: VANCOMYCIN 1,500MG inj. 1,500 MG in normal saline 500ml IV soln 500 ML IV SCH ×2 (13:27→23:25)
--- NOTE | 2020-03-08 13:57 | NUR ---
OR asked to notify Anesthesiologist that PT's cbg [id number].
[2020-03-08 14:41] LABS: HIV ANTIBODY 1&2 RAPID NON-REACTIVE (Neg)
--- NOTE | 2020-03-08 15:00 | NUR ---
per anesthesia ok to leave pt on NS at 125ml/hr and not to start LR, not needed.
--- NOTE | 2020-03-08 15:27 | NUR ---
DM consult, A1c >14, pending pre op covid testing. Pending sx for Harriet's gangrene. Patient needs extensive DM education prior to discharge. Will follow. Addendum: 03/08/20 at [address] Amended: Links added.
[2020-03-08] MEDS ORDERED: sevoflurane 250ml liquid IH ONE (16:24)
[2020-03-08] MEDS ORDERED: fentaNYL /PF 50mcg/ml 5ml ampule ONE (16:29)
[2020-03-08] MEDS ORDERED: propofol inj 20 ML IV ONE (16:30)
--- NOTE | 2020-03-08 16:35 | NUR ---
PT taken to surgery.
--- NOTE | 2020-03-08 17:43 | NUR ---
PT back to room from surgery at 1730 on 10L mask. VS WNL. PT starting to wake. Per anesthesia LT groin wound debridement. Open and packed with curlex. PT to return to OR Wednesday morning. CBG 149. On assessment small amount of sanguineus drainage noted.
--- NOTE | 2020-03-08 18:30 | NUR ---
Problems reprioritized. Patient report given, questions answered & plan of care reviewed with Ryan.
[2020-03-08 21:17] LABS: PARTIAL THROMBOPLASTIN TIME 27 SECONDS (22-32)
[2020-03-08 21:23] LABS: HEMATOCRIT 36.5 % (42.0-52.0); HEMOGLOBIN 12.2 g/dl (14.0-17.9); MEAN CORPUSCULAR HEMOGLOBIN 29.9 PG (27.0-31.0); MEAN CORPUSCULAR HGB CONC 33.3 g/dL (33.0-36.5); MEAN CORPUSCULAR VOLUME 89.8 FL (78-98); MEAN PLATELET VOLUME 8.4 FL (7.4-10.4); PLATELET COUNT 225 X10'3 (140-440); RED BLOOD COUNT 4.07 X10'6 (4.70-6.10); RED CELL DISTRIBUTION WIDTH 13.5 % (11.5-14.5); WHITE BLOOD COUNT 10.3 X10'3 (4.5-11.0)
[2020-03-08] MEDS: insulin glargine (Lantus) pen - multi-dose SQ SCH (21:31)
[2020-03-08] MEDS: acetaminophen 325mg tablet PO PRN (21:45)
[2020-03-08] MEDS: heparin, porcine 5000 units/ml vial SQ SCH (22:24)
[2020-03-09] VITALS (23 sets, daily range): BP systolic 107–171; BP diastolic 63–96
[2020-03-09] MEDS: clindamycin 600mg/D5W 50ml 50 ML IV SCH ×4 (01:39→19:53)
[2020-03-09] MEDS: HYDROmorphone 1 mg/ml syringe IV PRN ×2 (01:47→19:57)
[2020-03-09] MEDS: piperacillin/tazo 3.375gm/50ml 50 ML IV SCH ×3 (02:33→16:06)
[2020-03-09] MEDS: normal saline 1000ml 1,000 ML IV SCH ×3 (02:58→17:58)
[2020-03-09] MEDS ORDERED: NORepinephrine 8mg/ 250ml NS 250 ML IV SCH (04:45)
--- NOTE | 2020-03-09 06:15 | NUR ---
Patient in room CICU 2009. I have received report from Ryan and had the opportunity to ask questions and assume patient care.
[2020-03-09] MEDS: pantoprazole 40 MG vial IV SCH (07:33)
[2020-03-09] MEDS: heparin, porcine 5000 units/ml vial SQ SCH ×2 (07:40→20:00)
[2020-03-09] MEDS: docusate sod 100mg capsule PO SCH ×2 (07:40→20:03)
--- NOTE | 2020-03-09 07:50 | NUR ---
PT A/O, pain 8/10, fever down, vitals WNL, wound with minimal serous drainage. Will monitor and provide pain medication. per md order.
[2020-03-09] MEDS: HYDROmorphone inj. 0.5 MG/0.5 ML DISP.SYRIN IV PRN ×2 (07:55→13:49)
[2020-03-09] MEDS: K, MAG and/or Phos replacement - Verify level? MC SCH (08:00)
[2020-03-09 08:23] LABS: BASOPHILS # (AUTO) 0.1 X10'3 (0-0.2); BASOPHILS % (AUTO) 0.5 % (0-1); EOSINOPHILS # (AUTO) 0.3 X10'3 (0-0.9); EOSINOPHILS % (AUTO) 2.4 % (0-6); HEMATOCRIT 33.6 % (42.0-52.0); LYMPHOCYTES # (AUTO) 1.6 X10'3 (1.1-4.8); LYMPHOCYTES % (AUTO) 15.4 % (21-51); MEAN CORPUSCULAR HEMOGLOBIN 29.3 PG (27.0-31.0); MEAN CORPUSCULAR HGB CONC 32.7 g/dL (33.0-36.5); MEAN CORPUSCULAR VOLUME 89.8 FL (78-98); MEAN PLATELET VOLUME 8.9 FL (7.4-10.4); MONOCYTES # (AUTO) 0.8 X10'3 (0-0.9); NEUTROPHILS # (AUTO) 7.7 X10'3 (1.8-7.7); NEUTROPHILS % (AUTO) 73.7 % (42-75); PLATELET COUNT 222 X10'3 (140-440); RED BLOOD COUNT 3.74 X10'6 (4.70-6.10); RED CELL DISTRIBUTION WIDTH 13.5 % (11.5-14.5); WHITE BLOOD COUNT 10.4 X10'3 (4.5-11.0)
[2020-03-09 08:32] LABS: PARTIAL THROMBOPLASTIN TIME 28 SECONDS (22-32)
[2020-03-09 08:41] LABS: ALANINE AMINOTRANSFERASE 18 U/L (12-78); ALBUMIN 1.6 G/DL (3.4-5.0); ALBUMIN/GLOBULIN RATIO 0.3 (1.1-1.5); ALKALINE PHOSPHATASE 112 IU/L (46-116); ANION GAP 12 (8-16); ASPARTATE AMINO TRANSFERASE 26 U/L (10-37); BILIRUBIN,TOTAL 0.4 MG/DL (0.1-1.0); BLOOD UREA NITROGEN 15 MG/DL (7-18); BUN/CREATININE RATIO 10.5 (5.4-32.0); CALCIUM 8.1 MG/DL (8.5-10.1); CHLORIDE 106 MMOL/L (99-107); CREATININE 1.43 MG/DL (0.60-1.10); GLUCOSE 193 MG/DL (70-104); MAGNESIUM 1.5 MG/DL (1.5-2.4); POTASSIUM 3.7 MMOL/L (3.5-5.1); SODIUM 137 MMOL/L (135-145); TOTAL CARBON DIOXIDE 19.5 MMOL/L (24-32); TOTAL PROTEIN 6.4 G/DL (6.4-8.2); eGFR 53 ML/MIN
[2020-03-09] MEDS: insulin Lispro (HumaLOG) vial - multi-dose SQ SCH ×3 (09:17→19:53)
[2020-03-09 09:56] LABS: TOTAL CELLS COUNTED 100
[2020-03-09 09:58] LABS: PLATELET ESTIMATE NORMAL; POLYCHROMASIA FEW
[2020-03-09] MEDS ORDERED: VANCOMYCIN LEVEL IV ONE (10:30)
--- NOTE | 2020-03-09 10:52 | NUR ---
lab called twice to have a tech draw a [facility]-pharmacy aware.
[2020-03-09] MEDS: VANCOMYCIN 1,500MG inj. 1,500 MG in normal saline 500ml IV soln 500 ML IV SCH (11:36)
--- NOTE | 2020-03-09 18:15 | NUR ---
Problems reprioritized. Patient report given, questions answered & plan of care reviewed with Ryan.
--- NOTE | 2020-03-09 19:44 | NUR ---
DM consult/Wound consult, A1c >14, Patient is s/p stage 1 debridement 03/08 and back to OR 03/09 per MD progress note. Has open surgical wound to left suprapubic inguinal region. Ate 100% of meals today, carb controlled diet, good appetite. Visited pt at bedside, reports was told he had diabetes multiple times but never started to take medication for it. States that he is now trying to get a PCP at the [facility] while admitted here. Pt appears guarded during conversation and became tearful at the end. States not knowing about DM diet, carbs, etc. Gave patient written high protein education handout and written DM education handout. Encouraged patient to review handout and RD will return to thorough verbal review of information. Agrees for RD visit on wednesday, agrees to double protein , d/w dietary. Addendum: 03/09/20 at [address] Amended: Links added.
[2020-03-09] MEDS: acetaminophen 325mg tablet PO PRN (20:03)
[2020-03-09] MEDS: lactobacillus rhamnosus 10,000 MMU CELLS/CAPSULE PO SCH (20:03)
[2020-03-09] MEDS: insulin glargine (Lantus) pen - multi-dose SQ SCH (21:53)
[2020-03-10] VITALS (15 sets, daily range): BP systolic 112–159; BP diastolic 64–90
[2020-03-10] MEDS: piperacillin/tazo 3.375gm/50ml 50 ML IV SCH ×3 (00:12→16:02)
[2020-03-10] MEDS: VANCOmycin 1250MG/NS 250ml Bag 250 ML IV SCH ×3 (00:13→23:00)
[2020-03-10] MEDS: HYDROmorphone 1 mg/ml syringe IV PRN ×5 (00:30→23:00)
[2020-03-10] MEDS ORDERED: lactulose 20gm/30ml cup PO PRN (03:00)
[2020-03-10] MEDS ORDERED: bisacodyl 10mg suppository rectal RC PRN (03:00)
[2020-03-10] MEDS: clindamycin 600mg/D5W 50ml 50 ML IV SCH ×4 (03:32→19:05)
[2020-03-10] MEDS: normal saline 1000ml 1,000 ML IV SCH ×3 (03:32→18:58)
[2020-03-10 06:28] LABS: BASOPHILS % (AUTO) 0.5 % (0-1); EOSINOPHILS # (AUTO) 0.3 X10'3 (0-0.9); EOSINOPHILS % (AUTO) 3.2 % (0-6); HEMATOCRIT 33.6 % (42.0-52.0); HEMOGLOBIN 11.2 g/dl (14.0-17.9); LYMPHOCYTES # (AUTO) 1.6 X10'3 (1.1-4.8); LYMPHOCYTES % (AUTO) 17.9 % (21-51); MEAN CORPUSCULAR HEMOGLOBIN 29.6 PG (27.0-31.0); MEAN CORPUSCULAR HGB CONC 33.2 g/dL (33.0-36.5); MEAN PLATELET VOLUME 8.5 FL (7.4-10.4); MONOCYTES # (AUTO) 0.6 X10'3 (0-0.9); MONOCYTES % (AUTO) 7.1 % (2-12); NEUTROPHILS # (AUTO) 6.5 X10'3 (1.8-7.7); NEUTROPHILS % (AUTO) 71.3 % (42-75); PLATELET COUNT 219 X10'3 (140-440); RED BLOOD COUNT 3.77 X10'6 (4.70-6.10); RED CELL DISTRIBUTION WIDTH 13.5 % (11.5-14.5); WHITE BLOOD COUNT 9.1 X10'3 (4.5-11.0)
[2020-03-10 06:42] LABS: ALANINE AMINOTRANSFERASE 19 U/L (12-78); ALBUMIN 1.6 G/DL (3.4-5.0); ALBUMIN/GLOBULIN RATIO 0.3 (1.1-1.5); ALKALINE PHOSPHATASE 117 IU/L (46-116); ANION GAP 10 (8-16); ASPARTATE AMINO TRANSFERASE 20 U/L (10-37); BILIRUBIN,TOTAL 0.3 MG/DL (0.1-1.0); BLOOD UREA NITROGEN 12 MG/DL (7-18); BUN/CREATININE RATIO 8.4 (5.4-32.0); CALCIUM 8.3 MG/DL (8.5-10.1); CHLORIDE 108 MMOL/L (99-107); CREATININE 1.43 MG/DL (0.60-1.10); GLUCOSE 135 MG/DL (70-104); MAGNESIUM 1.6 MG/DL (1.5-2.4); PHOSPHORUS 3.5 MG/DL (2.3-4.5); POTASSIUM 3.5 MMOL/L (3.5-5.1); SODIUM 140 MMOL/L (135-145); TOTAL CARBON DIOXIDE 21.7 MMOL/L (24-32); TOTAL PROTEIN 6.2 G/DL (6.4-8.2); eGFR 53 ML/MIN
[2020-03-10] MEDS ORDERED: ringers solution, lacted 1,000 ML IV SCH (07:34)
[2020-03-10] MEDS ORDERED: morphine 4 MG/ML inj SYRINge IV PRN (07:35)
[2020-03-10] MEDS ORDERED: morphine 2 MG/ML inj. syringe IV PRN (07:35)
[2020-03-10] MEDS ORDERED: meperidine/PF 25mg/ml syringe IV PRN ×3 (07:35)
[2020-03-10] MEDS ORDERED: proCHLORperazine 10 MG/2 ml inj IV PRN (07:35)
[2020-03-10] MEDS ORDERED: ondansetron/PF 4mg/2ml inj IV PRN (07:35)
[2020-03-10] MEDS: K, MAG and/or Phos replacement - Verify level? MC SCH (08:00)
[2020-03-10] MEDS: pantoprazole 40mg Tablet.DR PO SCH (08:12)
[2020-03-10] MEDS: lactobacillus rhamnosus 10,000 MMU CELLS/CAPSULE PO SCH ×2 (08:12→19:04)
[2020-03-10 08:17] LABS: PLATELET ESTIMATE NORMAL; POLYCHROMASIA 1+; ROULEAUX 1+; TOTAL CELLS COUNTED 100; TOXIC GRANULATION 1+
[2020-03-10] MEDS: ondansetron/PF 4mg/2ml inj IV PRN (09:41)
[2020-03-10] MEDS: insulin Lispro (HumaLOG) vial - multi-dose SQ SCH ×3 (09:49→19:01)
[2020-03-10] MEDS: heparin, porcine 5000 units/ml vial SQ SCH ×2 (09:52→19:04)
[2020-03-10] MEDS: docusate sod 100mg capsule PO SCH ×2 (09:52→19:04)
--- NOTE | 2020-03-10 12:13 | NUR ---
Patient in room CICU 2009. I have received report from DANIELE Erazo and had the opportunity to ask questions and assume patient care.
--- NOTE | 2020-03-10 14:15 | NUR ---
received pt into room 3023a,oriented to surroundings,pt has wallet in bedside table drawer,cell phone,no fashion designer,keys,shoes and cane,assessment and 2 rn skin check complete
--- NOTE | 2020-03-10 18:45 | NUR ---
Problems reprioritized. Patient report given, questions answered & plan of care reviewed DANIELE Panda .
[2020-03-10] MEDS: insulin glargine (Lantus) pen - multi-dose SQ SCH (21:26)
--- NOTE | 2020-03-10 23:10 | NUR ---
temp 99.6; provided with IS to assist with decreasing fever and lung function.
[2020-03-11] MEDS: piperacillin/tazo 3.375gm/50ml 50 ML IV SCH ×4 (00:04→23:48)
[2020-03-11] MEDS: clindamycin 600mg/D5W 50ml 50 ML IV SCH ×3 (01:17→13:01)
[2020-03-11] MEDS: normal saline 1000ml 1,000 ML IV SCH ×3 (01:17→18:58)
[2020-03-11] MEDS: ondansetron/PF 4mg/2ml inj IV PRN (01:18)
[2020-03-11] MEDS: HYDROmorphone 1 mg/ml syringe IV PRN ×5 (03:12→23:48)
[2020-03-11 03:18] VITALS: BP 142/80
[2020-03-11 05:26] LABS: BASOPHILS % (AUTO) 0.4 % (0-1); EOSINOPHILS # (AUTO) 0.2 X10'3 (0-0.9); EOSINOPHILS % (AUTO) 2.2 % (0-6); HEMATOCRIT 32.7 % (42.0-52.0); HEMOGLOBIN 10.8 g/dl (14.0-17.9); LYMPHOCYTES # (AUTO) 1.5 X10'3 (1.1-4.8); LYMPHOCYTES % (AUTO) 17.1 % (21-51); MEAN CORPUSCULAR HEMOGLOBIN 29.6 PG (27.0-31.0); MEAN CORPUSCULAR HGB CONC 33.1 g/dL (33.0-36.5); MEAN CORPUSCULAR VOLUME 89.4 FL (78-98); MEAN PLATELET VOLUME 8.5 FL (7.4-10.4); MONOCYTES # (AUTO) 0.5 X10'3 (0-0.9); MONOCYTES % (AUTO) 6.2 % (2-12); NEUTROPHILS # (AUTO) 6.4 X10'3 (1.8-7.7); NEUTROPHILS % (AUTO) 74.1 % (42-75); PLATELET COUNT 233 X10'3 (140-440); RED BLOOD COUNT 3.66 X10'6 (4.70-6.10); RED CELL DISTRIBUTION WIDTH 13.2 % (11.5-14.5); WHITE BLOOD COUNT 8.6 X10'3 (4.5-11.0)
[2020-03-11 05:29] LABS: PARTIAL THROMBOPLASTIN TIME 29 SECONDS (22-32)
[2020-03-11 05:36] LABS: ANION GAP 11 (8-16); BLOOD UREA NITROGEN 12 MG/DL (7-18); BUN/CREATININE RATIO 7.9 (5.4-32.0); CALCIUM 8.2 MG/DL (8.5-10.1); CHLORIDE 106 MMOL/L (99-107); CREATININE 1.52 MG/DL (0.60-1.10); GLUCOSE 138 MG/DL (70-104); POTASSIUM 3.6 MMOL/L (3.5-5.1); SODIUM 139 MMOL/L (135-145); TOTAL CARBON DIOXIDE 22.2 MMOL/L (24-32); eGFR 49 ML/MIN
[2020-03-11 05:37] LABS: ALANINE AMINOTRANSFERASE 20 U/L (12-78); ALBUMIN 1.6 G/DL (3.4-5.0); ALBUMIN/GLOBULIN RATIO 0.3 (1.1-1.5); ALKALINE PHOSPHATASE 111 IU/L (46-116); ASPARTATE AMINO TRANSFERASE 17 U/L (10-37); BILIRUBIN,TOTAL 0.3 MG/DL (0.1-1.0); MAGNESIUM 1.5 MG/DL (1.5-2.4); PHOSPHORUS 3.6 MG/DL (2.3-4.5); TOTAL PROTEIN 6.5 G/DL (6.4-8.2)
--- NOTE | 2020-03-11 06:24 | NUR ---
Problems reprioritized. Patient report given, questions answered & plan of care reviewed with DANIELE Gonzalez.
--- NOTE | 2020-03-11 06:29 | NUR ---
Patient in room PCU 3023. I have received report from Inge SANABRIA and had the opportunity to ask questions and assume patient care.
[2020-03-11 07:00] VITALS: BP 140/79
[2020-03-11] MEDS: lactobacillus rhamnosus 10,000 MMU CELLS/CAPSULE PO SCH ×2 (07:12→19:33)
[2020-03-11] MEDS: docusate sod 100mg capsule PO SCH ×2 (07:12→19:33)
[2020-03-11] MEDS: pantoprazole 40mg Tablet.DR PO SCH (07:12)
[2020-03-11] MEDS: heparin, porcine 5000 units/ml vial SQ SCH ×2 (07:13→19:34)
[2020-03-11] MEDS: K, MAG and/or Phos replacement - Verify level? MC SCH (08:00)
[2020-03-11] MEDS: insulin Lispro (HumaLOG) vial - multi-dose SQ SCH ×3 (08:18→19:32)
[2020-03-11] MEDS ORDERED: VANCOMYCIN LEVEL IV ONE ×2 (10:30→22:30)
[2020-03-11] MEDS: VANCOmycin 1250MG/NS 250ml Bag 250 ML IV SCH (10:33)
[2020-03-11 11:00] VITALS: BP 141/80
--- NOTE | 2020-03-11 12:09 | NUR ---
process controls technician is concerned about the spread of infection. Multiple attempts to reach Dr. Rodriguez via phone about patient's status, no answer and voicemail is full. Will continue to monitor patient and will continue attempting to reach Dr. Rodriguez.
--- NOTE | 2020-03-11 14:19 | NUR ---
Initial: Pt admit w/ sepsis, LAQUITA, T2DM A1C over 14, morbid obesity, and Harriet's Gangrene DX per . S/p debridement 03/08. PO 75-100% avg carb controlled meals receiving double proteins TIDWM meeting needs. LBM 03/08. Will continue to monitor. Rec: 1. continue carb controlled diet; double eggs at breakfast; double meats BIDLD 2. bowel care as needed 3. wt per rx Addendum: 03/11/20 at [address] Amended: Links added.
--- NOTE | 2020-03-11 14:46 | NUR ---
Continuing to call Dr. Rodriguez to update him on his patient's condition. No answer and voicemail is full.
[2020-03-11 15:00] VITALS: BP 158/91
--- NOTE | 2020-03-11 15:16 | NUR ---
Follow up: visited pt at bedside for reinforcement of DM education. Pt stated he did read the packet given to him, asked him if he had any questions and replied "No, its just something I have to do." appears passive, not ready for education today but willing to have RD return for verbal discussion. Addendum: 03/11/20 at [address] Amended: Links added.
[2020-03-11 18:00] VITALS: BP 141/79
--- NOTE | 2020-03-11 18:00 | NUR ---
Patient in room PCU 3023. I have received report from DANIELE Jackson and had the opportunity to ask questions and assume patient care.
--- NOTE | 2020-03-11 18:36 | NUR ---
Problems reprioritized. Patient report given, questions answered & plan of care reviewed with Raina SANABRIA.
[2020-03-11] MEDS: linezolid 600mg tablet PO SCH (19:33)
[2020-03-11] MEDS: insulin glargine (Lantus) pen - multi-dose SQ SCH (21:00)
[2020-03-11 22:00] VITALS: BP 138/72
--- NOTE | 2020-03-11 22:00 | NUR ---
Spoke to Amy Layne NP regarding patients NPO status, she stated to allow him to have his CC diet for the night and change to clear liquids in the morning. Patient was NPO while waiting for a return call or consult to from Dr. Shah this evening. Patient has been NPO all day, his 2100 blood sugar was 106, Amy Layne also stated to hold the [place].
[2020-03-12 02:00] VITALS: BP 143/83
[2020-03-12] MEDS: normal saline 1000ml 1,000 ML IV SCH ×2 (02:58→10:58)
[2020-03-12] MEDS: HYDROmorphone 1 mg/ml syringe IV PRN ×5 (04:26→21:51)
[2020-03-12 05:53] LABS: BASOPHILS % (AUTO) 0.4 % (0-1); EOSINOPHILS # (AUTO) 0.3 X10'3 (0-0.9); EOSINOPHILS % (AUTO) 2.9 % (0-6); HEMOGLOBIN 11.1 g/dl (14.0-17.9); LYMPHOCYTES # (AUTO) 1.4 X10'3 (1.1-4.8); LYMPHOCYTES % (AUTO) 16.6 % (21-51); MEAN CORPUSCULAR HEMOGLOBIN 29.5 PG (27.0-31.0); MEAN CORPUSCULAR HGB CONC 33.5 g/dL (33.0-36.5); MEAN CORPUSCULAR VOLUME 88.1 FL (78-98); MEAN PLATELET VOLUME 8.5 FL (7.4-10.4); MONOCYTES # (AUTO) 0.5 X10'3 (0-0.9); NEUTROPHILS # (AUTO) 6.4 X10'3 (1.8-7.7); NEUTROPHILS % (AUTO) 74.1 % (42-75); PLATELET COUNT 275 X10'3 (140-440); RED BLOOD COUNT 3.75 X10'6 (4.70-6.10); RED CELL DISTRIBUTION WIDTH 13.4 % (11.5-14.5); WHITE BLOOD COUNT 8.7 X10'3 (4.5-11.0)
--- NOTE | 2020-03-12 06:00 | NUR ---
RECEIVED REPORT FROM BRANDY SANABRIA.
[2020-03-12 06:01] LABS: ALANINE AMINOTRANSFERASE 16 U/L (12-78); ALBUMIN 1.7 G/DL (3.4-5.0); ALBUMIN/GLOBULIN RATIO 0.3 (1.1-1.5); ALKALINE PHOSPHATASE 112 IU/L (46-116); ANION GAP 12 (8-16); ASPARTATE AMINO TRANSFERASE 19 U/L (10-37); BILIRUBIN,TOTAL 0.4 MG/DL (0.1-1.0); BLOOD UREA NITROGEN 11 MG/DL (7-18); BUN/CREATININE RATIO 7.7 (5.4-32.0); CALCIUM 8.4 MG/DL (8.5-10.1); CHLORIDE 105 MMOL/L (99-107); CREATININE 1.43 MG/DL (0.60-1.10); GLUCOSE 160 MG/DL (70-104); MAGNESIUM 1.5 MG/DL (1.5-2.4); PHOSPHORUS 3.5 MG/DL (2.3-4.5); POTASSIUM 3.6 MMOL/L (3.5-5.1); SODIUM 139 MMOL/L (135-145); TOTAL CARBON DIOXIDE 22.1 MMOL/L (24-32); TOTAL PROTEIN 6.8 G/DL (6.4-8.2); eGFR 53 ML/MIN
--- NOTE | 2020-03-12 06:20 | NUR ---
Problems reprioritized. Patient report given, questions answered & plan of care reviewed with DANIELE Adames.
[2020-03-12 07:14] VITALS: BP 136/79
[2020-03-12 07:47] LABS: PLATELET ESTIMATE NORMAL; TOTAL CELLS COUNTED 100; TOXIC GRANULATION 1+
[2020-03-12] MEDS: K, MAG and/or Phos replacement - Verify level? MC SCH (08:00)
[2020-03-12] MEDS: pantoprazole 40mg Tablet.DR PO SCH (09:13)
[2020-03-12] MEDS: docusate sod 100mg capsule PO SCH ×2 (09:13→21:07)
[2020-03-12] MEDS: lactobacillus rhamnosus 10,000 MMU CELLS/CAPSULE PO SCH ×2 (09:13→21:07)
[2020-03-12] MEDS: linezolid 600mg tablet PO SCH ×2 (09:13→21:07)
[2020-03-12] MEDS: piperacillin/tazo 3.375gm/50ml 50 ML IV SCH ×2 (09:14→15:44)
[2020-03-12] MEDS: insulin Lispro (HumaLOG) vial - multi-dose SQ SCH ×3 (09:22→20:04)
--- NOTE | 2020-03-12 10:32 | NUR ---
CALLED DR. GUERRERO RE: ELECTRICAL TECHNOLOGY INSTRUCTOR VIEWING OF WOUND YESTERDAY. MADE HIM AWARE THAT WOUND VAC WAS NOT PLACED DUE TO ELECTRICAL TECHNOLOGY INSTRUCTOR BELIEVING THE WOUND TO BE WORSE. RECEIVED ORDERS FROM DR. GUERRERO TO MAKE PATIENT NPO AFTER MIDNIGHT TONIGHT FOR REDEBRIDEMENT OF LEFT GROIN WOUND FOR TOMORROW 03/13 AM.
--- NOTE | 2020-03-12 10:53 | NUR ---
WILL ADMINISTER HEPARIN SQ TODAY AND HOLD ALL THINNERS FOR PLANNED SURGICAL DEBRIDEMENT TOMORROW.
--- NOTE | 2020-03-12 11:03 | NUR ---
zyvox consult: Pt seen by BRIELLE for written/verbal zyvox ed. Pt reports does not normally consume higher tyramine foods at home; BRIELLE contact information already provided to pt during prior ed. Addendum: 03/12/20 at [address] Amended: Links added.
[2020-03-12] MEDS: heparin, porcine 5000 units/ml vial SQ SCH ×2 (11:47→20:00)
[2020-03-12 12:37] VITALS: BP 148/78
[2020-03-12 17:40] VITALS: BP 140/74
[2020-03-12 18:00] VITALS: BP 133/75
--- NOTE | 2020-03-12 18:28 | NUR ---
Reported off to Violette SANABRIA.
--- NOTE | 2020-03-12 18:48 | NUR ---
Patient in room PCU 3023. I have received report from DANIELE Adames and had the opportunity to ask questions and assume patient care.
[2020-03-12] MEDS: insulin glargine (Lantus) pen - multi-dose SQ SCH (21:49)
[2020-03-13] VITALS (14 sets, daily range): BP systolic 118–150; BP diastolic 68–84
[2020-03-13] MEDS: piperacillin/tazo 3.375gm/50ml 50 ML IV SCH ×2 (00:12→07:27)
[2020-03-13] MEDS: HYDROmorphone 1 mg/ml syringe IV PRN ×3 (02:09→12:26)
[2020-03-13 05:13] LABS: BASOPHILS % (AUTO) 0.4 % (0-1); EOSINOPHILS # (AUTO) 0.2 X10'3 (0-0.9); EOSINOPHILS % (AUTO) 2.5 % (0-6); HEMATOCRIT 35.3 % (42.0-52.0); HEMOGLOBIN 11.8 g/dl (14.0-17.9); LYMPHOCYTES # (AUTO) 1.7 X10'3 (1.1-4.8); LYMPHOCYTES % (AUTO) 17.5 % (21-51); MEAN CORPUSCULAR HEMOGLOBIN 29.7 PG (27.0-31.0); MEAN CORPUSCULAR HGB CONC 33.4 g/dL (33.0-36.5); MEAN CORPUSCULAR VOLUME 88.9 FL (78-98); MEAN PLATELET VOLUME 8.3 FL (7.4-10.4); MONOCYTES # (AUTO) 0.6 X10'3 (0-0.9); MONOCYTES % (AUTO) 6.7 % (2-12); NEUTROPHILS # (AUTO) 6.9 X10'3 (1.8-7.7); NEUTROPHILS % (AUTO) 72.9 % (42-75); PLATELET COUNT 333 X10'3 (140-440); RED BLOOD COUNT 3.97 X10'6 (4.70-6.10); RED CELL DISTRIBUTION WIDTH 13.2 % (11.5-14.5); WHITE BLOOD COUNT 9.5 X10'3 (4.5-11.0)
[2020-03-13 05:25] LABS: ALANINE AMINOTRANSFERASE 18 U/L (12-78); ALBUMIN 1.9 G/DL (3.4-5.0); ALBUMIN/GLOBULIN RATIO 0.4 (1.1-1.5); ALKALINE PHOSPHATASE 117 IU/L (46-116); ANION GAP 10 (8-16); ASPARTATE AMINO TRANSFERASE 16 U/L (10-37); BILIRUBIN,TOTAL 0.3 MG/DL (0.1-1.0); BLOOD UREA NITROGEN 12 MG/DL (7-18); BUN/CREATININE RATIO 7.3 (5.4-32.0); CALCIUM 9.1 MG/DL (8.5-10.1); CHLORIDE 106 MMOL/L (99-107); CREATININE 1.64 MG/DL (0.60-1.10); GLUCOSE 138 MG/DL (70-104); MAGNESIUM 1.8 MG/DL (1.5-2.4); PHOSPHORUS 4.2 MG/DL (2.3-4.5); POTASSIUM 3.9 MMOL/L (3.5-5.1); SODIUM 143 MMOL/L (135-145); TOTAL PROTEIN 7.3 G/DL (6.4-8.2); eGFR 45 ML/MIN
--- NOTE | 2020-03-13 06:36 | NUR ---
Problems reprioritized. Patient report given, questions answered & plan of care reviewed with DANIELE Yeager.
--- NOTE | 2020-03-13 06:52 | NUR ---
Patient in room PCU 3023. I have received report from Violette SANABRIA and had the opportunity to ask questions and assume patient care.
[2020-03-13] MEDS: pantoprazole 40mg Tablet.DR PO SCH (07:28)
[2020-03-13] MEDS: lactobacillus rhamnosus 10,000 MMU CELLS/CAPSULE PO SCH (07:28)
[2020-03-13] MEDS: linezolid 600mg tablet PO SCH (07:28)
[2020-03-13] MEDS: docusate sod 100mg capsule PO SCH (07:29)
[2020-03-13] MEDS: heparin, porcine 5000 units/ml vial SQ SCH (07:36)
[2020-03-13] MEDS: K, MAG and/or Phos replacement - Verify level? MC SCH (07:36)
[2020-03-13] MEDS: insulin Lispro (HumaLOG) vial - multi-dose SQ SCH ×2 (08:40→13:39)
[2020-03-13] MEDS ORDERED: ondansetron/PF 4mg/2ml inj IV PRN (09:15)
[2020-03-13] MEDS ORDERED: labetalol 20mg/4ml (5mg/ml) syringe IV PRN (09:15)
[2020-03-13] MEDS ORDERED: hydrALAZINE 20mg/ml inj. IV PRN (09:15)
[2020-03-13] MEDS ORDERED: ringers solution, lacted 1,000 ML IV SCH (09:15)
[2020-03-13] MEDS ORDERED: morphine 4 MG/ML inj SYRINge IV PRN (09:15)
[2020-03-13] MEDS ORDERED: fentaNYL/PF 50MCG/1 ML 2ML syringe IV PRN ×2 (09:15)
[2020-03-13] MEDS ORDERED: morphine 2 MG/ML inj. syringe IV PRN (09:15)
--- NOTE | 2020-03-13 09:25 | NUR ---
Patient is off floor to OR
[2020-03-13] MEDS ORDERED: sevoflurane 250ml liquid IH ONE (10:10)
--- NOTE | 2020-03-13 11:05 | NUR ---
Received from OR via PCU BED, accompanied by Anesthesiologist DR ABREU and report given by Anesthesiolgist. PT PLACED ON O2 AND MONITOR, S/P I AND D OF LEFT GROIN AND WOUND VAC PLACEMENT, GENERAL ANESTH, PT HAS LEFT GROIND WOUND VAC IN PLACE, 125 MMHG ON CONTINUOUS SUCTION, DENIES ANY PAIN OR NAUSEA AT THIS TIME WILL CONT TO ASSESS.
--- NOTE | 2020-03-13 12:05 | NUR ---
Report called to receiving nurse. Transferred via PCU BED TO ROOM 3023A Belongings . Special Issues communicated to receiving nurse.
--- NOTE | 2020-03-13 16:18 | NUR ---
Patient stable for discharge per MD order. Patient transferred to [facility], picked up by medical personnel.
== END 2020-03-13 17:14 | DRG 853 ==
LOC: ER 20:48 → ED HOLD 03-08 02:58 → UNDOADMIN 03-08 03:59 → ED HOLD 03-08 03:59 → CICU 2S 03-08 05:20 → ED HOLD 03-08 05:20 → PCU 3S 03-10 13:50
PROVIDERS: ADMIT Internal Medicine Critical Care Medicine
PROC: BW211ZZ Computerized Tomography (CT Scan) of Abdomen and Pelvis using Low Osmolar Contrast (ICD-10-PCS; 2020-03-08)
PROC: 0JBB0ZZ Excision of Perineum Subcutaneous Tissue and Fascia, Open Approach (ICD-10-PCS; principal; 2020-03-13 10:10)
DX: A41.9 Sepsis, unspecified organism (principal); M72.6 Necrotizing fasciitis; N17.9 Acute kidney failure, unspecified; N49.3 Fournier gangrene; B96.89 Other specified bacterial agents as the cause of diseases classified elsewhere; D64.9 Anemia, unspecified; E11.22 Type 2 diabetes mellitus with diabetic chronic kidney disease; R65.20 Severe sepsis without septic shock; E66.01 Morbid (severe) obesity due to excess calories; E11.21 Type 2 diabetes mellitus with diabetic nephropathy; F32.9 Major depressive disorder, single episode, unspecified; I12.9 Hypertensive chronic kidney disease with stage 1 through stage 4 chronic kidney disease, or unspecified chronic kidney disease; N18.3 Chronic kidney disease, stage 3 (moderate); K59.00 Constipation, unspecified; F17.200 Nicotine dependence, unspecified, uncomplicated; F12.90 Cannabis use, unspecified, uncomplicated; G89.29 Other chronic pain; M54.9 Dorsalgia, unspecified; Z88.0 Allergy status to penicillin; Z68.39 Body mass index [BMI] 39.0-39.9, adult
CPT/HCPCS: 36415; 36600; 71045; 74177; 80053; 80202; 80305; 80320; 81001; 82803; 82948; 83036; 83605; 83690; 83735; 84100; 84145; 84484; 85018; 85025; 85027; 85610; 85730; 86140; 86703; 87040; 87070; 87075; 87077; 87081; 87186; 87635; 93005; 93306; 94760; 97110; 97116; 97162; 99291; A4618; A6446; A6550; A7000; C9113; G0378; J1170; J1644; J1815; J2060; J2405; J2543; J2704; J3010; J3370; J3490; J7030; J7040; J7120; Q9967

== ENCOUNTER 2020-05-14 05:40 | Emergency (ER) | payer MEDICARE ==
[~2020-05-14] VITALS: Ht 175.3 cm; Wt 97.7 kg
[~2020-05-14 05:40] MED LIST changes: -AMLO2.5T2 PO; -ESCI10TA61 PO; -GABA-532 PO; -GLIP5TAB13 PO; -METO-395 PO; +NO HOME MEDS; -PANT-47 PO; -THI100T PO; -TRAZ-251 PO
[2020-05-14] MEDS ORDERED: normal saline 1000ML IV soln IV ONE (06:00)
[2020-05-14] MEDS ORDERED: CefTRIAXone 2gm/D5W 50ml 50 ML IV ONE (06:00)
[2020-05-14 06:26] LABS: BASOPHILS # (AUTO) 0.1 X10'3 (0-0.2); BASOPHILS % (AUTO) 0.6 % (0-1); EOSINOPHILS # (AUTO) 0.2 X10'3 (0-0.9); EOSINOPHILS % (AUTO) 1.6 % (0-6); HEMATOCRIT 35.5 % (42.0-52.0); LYMPHOCYTES # (AUTO) 2.3 X10'3 (1.1-4.8); LYMPHOCYTES % (AUTO) 20.4 % (21-51); MEAN CORPUSCULAR HEMOGLOBIN 30.4 PG (27.0-31.0); MEAN CORPUSCULAR HGB CONC 33.8 g/dL (33.0-36.5); MEAN PLATELET VOLUME 8.9 FL (7.4-10.4); MONOCYTES # (AUTO) 0.8 X10'3 (0-0.9); MONOCYTES % (AUTO) 7.6 % (2-12); NEUTROPHILS # (AUTO) 7.7 X10'3 (1.8-7.7); NEUTROPHILS % (AUTO) 69.8 % (42-75); PLATELET COUNT 222 X10'3 (140-440); RED BLOOD COUNT 3.95 X10'6 (4.70-6.10); WHITE BLOOD COUNT 11.1 X10'3 (4.5-11.0)
[2020-05-14 06:29] LABS: ALANINE AMINOTRANSFERASE 82 U/L (12-78); ALBUMIN 2.7 G/DL (3.4-5.0); ALBUMIN/GLOBULIN RATIO 0.6 (1.1-1.5); ALKALINE PHOSPHATASE 151 IU/L (46-116); ANION GAP 10 (8-16); ASPARTATE AMINO TRANSFERASE 44 U/L (10-37); BILIRUBIN,TOTAL 0.3 MG/DL (0.1-1.0); BLOOD UREA NITROGEN 21 MG/DL (7-18); BUN/CREATININE RATIO 12.1 (5.4-32.0); CALCIUM 9.1 MG/DL (8.5-10.1); CHLORIDE 97 MMOL/L (99-107); CREATININE 1.74 MG/DL (0.60-1.10); POTASSIUM 3.6 MMOL/L (3.5-5.1); SODIUM 130 MMOL/L (135-145); TOTAL CARBON DIOXIDE 23.3 MMOL/L (24-32); TOTAL PROTEIN 7.2 G/DL (6.4-8.2); eGFR 42 ML/MIN
[2020-05-14 06:30] LABS: GLUCOSE 497 MG/DL (70-104)
[2020-05-14] MEDS ORDERED: normal saline 1000ML IV soln IVB ONE (06:35)
[2020-05-14] MEDS ORDERED: insulin regular, human 10 units/0.1 ml syringe IV ONE (06:35)
[2020-05-14] MEDS ORDERED: insulin regular, human U-100 3ml vial - multi-dose IV ONE (06:45)
[2020-05-14 07:11] LABS: CLARITY,URINE CLEAR (Clear); COLOR,URINE STRAW (Yellow); GLUCOSE, URINE >=1000 mg/dl (Neg); KETONES,URINE NEGATIVE (Neg); LEUKOCYTE ESTERASE ,URINE NEGATIVE (Neg); NITRITES, URINE NEGATIVE (Neg); OCCULT BLOOD,URINE TRACE-INTACT (Neg); PROTEIN,URINE 100 mg/dl (Neg); UROBILINOGEN,URINE 0.2 E.U/dL (0.2-1.0)
[2020-05-14 07:12] LABS: UA COLLECTION TYPE URINAL
[2020-05-14] MEDS ORDERED: vancomycin/NS 1 GM ADD-VANTAGE 250 ML IV ONE (07:30)
[2020-05-14] MEDS ORDERED: miconazole nitrate 28.35 gm derm cream TP STA (07:32)
[2020-05-14 07:34] LABS: RBC,URINE 0-2 /HPF (0-2); SQUAMOUS EPITHELIAL CELL,UR FEW /LPF (FEW)
[2020-05-14 07:36] LABS: BACTERIA,URINE FEW /HPF (Neg)
--- NOTE | 2020-05-14 07:53 | NUR ---
Educated pt on proper pericare and to make sure he keeps himself as dry as possible. Educated pt on application of cream.
[2020-05-14] MEDS ORDERED: METF500T PO (08:34)
[2020-05-14 08:49] LABS: HEMOGLOBIN A1C 8.7 % (4.5-6.2)
--- NOTE | 2020-05-14 09:30 | NUR ---
Pt sleeping. Respirations unlabored. NAD
--- NOTE | 2020-05-14 09:35 | NUR ---
Dr Rodriguez at bedside.
[2020-05-14] MEDS ORDERED: MICO113C TOP (09:43)
[2020-05-14 10:05] VITALS: BP 140/76
[2020-05-19] MEDS ORDERED: LANTUS SQ (09:40)
[2020-05-19] MEDS ORDERED: LEVO500T2 PO (09:40)
== END 2020-05-14 10:10 | disposition home or self-care (01) ==
LOC: ER 05:41
DX: Z48.01 Encounter for change or removal of surgical wound dressing (principal); B35.6 Tinea cruris; E11.65 Type 2 diabetes mellitus with hyperglycemia; R50.9 Fever, unspecified; R10.32 Left lower quadrant pain; I10 Essential (primary) hypertension; G89.29 Other chronic pain; F12.90 Cannabis use, unspecified, uncomplicated; Z72.89 Other problems related to lifestyle; Z60.2 Problems related to living alone; Z98.890 Other specified postprocedural states; Z88.0 Allergy status to penicillin; Z79.84 Long term (current) use of oral hypoglycemic drugs; Z79.899 Other long term (current) drug therapy
CPT/HCPCS: 36415; 80053; 81001; 82948; 83036; 84145; 85025; 87040; 87077; 87088; 87186; 96361; 96374; 99285; J7030; 96375; J1815

== ENCOUNTER 2020-05-29 17:06 | Emergency (ER) | payer MEDICARE ==
[~2020-05-29] VITALS: Ht 172.7 cm; Wt 97.7 kg
[~2020-05-29 17:06] MED LIST changes: +LANTUS SQ; -NO HOME MEDS
[2020-05-29] MEDS ORDERED: ondansetron 4mg rapidly disintigrating tab PO ONE (17:45)
[2020-05-29] MEDS ORDERED: HYDROcodone/acetaminophen 5mg/325mg tablet PO ONE (18:15)
[2020-05-29 18:51] VITALS: BP 153/89
== END 2020-05-29 18:45 | disposition home or self-care (01) ==
LOC: ER 17:07
DX: M25.561 Pain in right knee (principal); I10 Essential (primary) hypertension; E11.9 Type 2 diabetes mellitus without complications; G89.29 Other chronic pain; F12.90 Cannabis use, unspecified, uncomplicated; F14.90 Cocaine use, unspecified, uncomplicated; Z86.69 Personal history of other diseases of the nervous system and sense organs; Z87.440 Personal history of urinary (tract) infections; Z98.890 Other specified postprocedural states; Z60.2 Problems related to living alone; Z88.0 Allergy status to penicillin; Z79.82 Long term (current) use of aspirin
CPT/HCPCS: 29505; 73564; 99283

== ENCOUNTER 2021-02-27 19:04 | Emergency (ER) | payer MEDICARE ==
[~2021-02-27] VITALS: Ht 175.3 cm; Wt 113.6 kg
[2021-02-27] MEDS ORDERED: normal saline 1000ML IV soln IV ONE (20:40)
[2021-02-27 21:17] LABS: BASOPHILS # (AUTO) 0.1 X10'3 (0-0.2); BASOPHILS % (AUTO) 0.4 % (0-1); EOSINOPHILS # (AUTO) 0.1 X10'3 (0-0.9); HEMATOCRIT 41.9 % (42.0-52.0); HEMOGLOBIN 14.4 g/dl (14.0-17.9); LYMPHOCYTES # (AUTO) 1.6 X10'3 (1.1-4.8); LYMPHOCYTES % (AUTO) 13.5 % (21-51); MEAN CORPUSCULAR HEMOGLOBIN 29.6 PG (27.0-31.0); MEAN CORPUSCULAR HGB CONC 34.4 g/dL (33.0-36.5); MEAN PLATELET VOLUME 8.4 FL (7.4-10.4); MONOCYTES # (AUTO) 0.9 X10'3 (0-0.9); MONOCYTES % (AUTO) 7.5 % (2-12); NEUTROPHILS # (AUTO) 9.3 X10'3 (1.8-7.7); NEUTROPHILS % (AUTO) 77.6 % (42-75); PLATELET COUNT 209 X10'3 (140-440); RED BLOOD COUNT 4.87 X10'6 (4.70-6.10); RED CELL DISTRIBUTION WIDTH 14.1 % (11.5-14.5)
[2021-02-27 21:39] LABS: ALANINE AMINOTRANSFERASE 19 U/L (12-78); ALBUMIN 2.4 G/DL (3.4-5.0); ALBUMIN/GLOBULIN RATIO 0.5 (1.1-1.5); ALKALINE PHOSPHATASE 128 IU/L (46-116); ANION GAP 10 (8-16); ASPARTATE AMINO TRANSFERASE 15 U/L (10-37); BILIRUBIN,TOTAL 0.8 MG/DL (0.1-1.0); BLOOD UREA NITROGEN 19 MG/DL (7-18); BUN/CREATININE RATIO 10.3 (5.4-32.0); CALCIUM 8.4 MG/DL (8.5-10.1); CHLORIDE 95 MMOL/L (99-107); CREATININE 1.84 MG/DL (0.60-1.10); GLUCOSE 305 MG/DL (70-104); MAGNESIUM 1.7 MG/DL (1.5-2.4); POTASSIUM 3.8 MMOL/L (3.5-5.1); SODIUM 128 MMOL/L (135-145); TOTAL CARBON DIOXIDE 22.9 MMOL/L (24-32); TROPONIN I < 0.04 NG/ML (0.0-0.05); eGFR 39 ML/MIN
[2021-02-27 21:46] LABS: COLOR,URINE YELLOW (Yellow); GLUCOSE, URINE 500 mg/dl (Neg); KETONES,URINE NEGATIVE (Neg); LEUKOCYTE ESTERASE ,URINE TRACE (Neg); NITRITES, URINE NEGATIVE (Neg); OCCULT BLOOD,URINE TRACE-INTACT (Neg); PH,URINE 5.5 (4.8-8.0); PROTEIN,URINE 100 mg/dl (Neg); UA COLLECTION TYPE CLN CATCH MIDSTREAM; UROBILINOGEN,URINE 0.2 E.U/dL (0.2-1.0)
[2021-02-27 21:47] LABS: CLARITY,URINE Slightly Cloudy (Clear)
[2021-02-27 21:59] LABS: BACTERIA,URINE FEW /HPF (Neg); RBC,URINE 0-2 /HPF (0-2); SQUAMOUS EPITHELIAL CELL,UR FEW /LPF (FEW)
[2021-02-27 22:01] LABS: WBC CLUMPS,URINE FEW /HPF (NEGATIVE)
[2021-02-27] MEDS ORDERED: CLIN-97 PO (22:38)
[2021-02-27] MEDS ORDERED: LIDOcaine 1% W/epiNEPHrine 1:200,000 10ml vial IJ ONE (22:50)
[2021-02-28 01:02] VITALS: BP 165/103
== END 2021-02-28 01:04 | disposition home or self-care (01) ==
LOC: ER 19:06
DX: T67.5XXA Heat exhaustion, unspecified, initial encounter (principal); Z20.822 Contact with and (suspected) exposure to COVID-19; L02.413 Cutaneous abscess of right upper limb; E87.1 Hypo-osmolality and hyponatremia; E86.0 Dehydration; R53.1 Weakness; R05 Cough; R06.02 Shortness of breath; I10 Essential (primary) hypertension; E11.9 Type 2 diabetes mellitus without complications; G89.29 Other chronic pain; F12.90 Cannabis use, unspecified, uncomplicated; F14.90 Cocaine use, unspecified, uncomplicated; Z86.69 Personal history of other diseases of the nervous system and sense organs; Z87.440 Personal history of urinary (tract) infections; Z98.890 Other specified postprocedural states; Z60.2 Problems related to living alone; Z88.0 Allergy status to penicillin; Z79.2 Long term (current) use of antibiotics; X30.XXXA Exposure to excessive natural heat, initial encounter; Y93.89 Activity, other specified; Y92.89 Other specified places as the place of occurrence of the external cause; Y99.8 Other external cause status
CPT/HCPCS: 10060; 36415; 71045; 80053; 81001; 83605; 83735; 83880; 84145; 84484; 85025; 87040; 87070; 87088; 87635; 93005; 96360; 96361; 99285; C9803; J7030; 87077; 87186

== ENCOUNTER 2021-04-09 03:27 | Emergency (ER) | payer MEDICARE ==
[~2021-04-09] VITALS: Ht 172.7 cm; Wt 113.6 kg
[~2021-04-09 03:27] MED LIST changes: +DOXY100C76 PO; +GLIP10TA11 PO; +HYDR-3972 PO; -LANTUS SQ
[2021-04-09] MEDS ORDERED: morphine 2 MG/ML inj. syringe IV PRN (04:15)
[2021-04-09 05:31] LABS: ALANINE AMINOTRANSFERASE 18 U/L (12-78); ALBUMIN 2.6 G/DL (3.4-5.0); ALBUMIN/GLOBULIN RATIO 0.5 (1.1-1.5); ALKALINE PHOSPHATASE 143 IU/L (46-116); ANION GAP 13 (8-16); ASPARTATE AMINO TRANSFERASE 11 U/L (10-37); BILIRUBIN,TOTAL 0.7 MG/DL (0.1-1.0); BLOOD UREA NITROGEN 10 MG/DL (7-18); BUN/CREATININE RATIO 5.5 (5.4-32.0); CALCIUM 8.5 MG/DL (8.5-10.1); CHLORIDE 97 MMOL/L (99-107); CREATININE 1.83 MG/DL (0.60-1.10); GLUCOSE 229 MG/DL (70-104); POTASSIUM 3.7 MMOL/L (3.5-5.1); SODIUM 134 MMOL/L (135-145); TOTAL CARBON DIOXIDE 23.7 MMOL/L (24-32); TOTAL PROTEIN 7.7 G/DL (6.4-8.2); eGFR 40 ML/MIN
[2021-04-09 05:36] LABS: BASOPHILS % (AUTO) 0.3 % (0-1); EOSINOPHILS # (AUTO) 0.1 X10'3 (0-0.9); HEMATOCRIT 38.5 % (42.0-52.0); LYMPHOCYTES # (AUTO) 1.7 X10'3 (1.1-4.8); LYMPHOCYTES % (AUTO) 12.3 % (21-51); MEAN CORPUSCULAR HEMOGLOBIN 29.7 PG (27.0-31.0); MEAN CORPUSCULAR HGB CONC 33.8 g/dL (33.0-36.5); MEAN CORPUSCULAR VOLUME 87.9 FL (78-98); MEAN PLATELET VOLUME 8.5 FL (7.4-10.4); MONOCYTES % (AUTO) 6.9 % (2-12); NEUTROPHILS # (AUTO) 11.2 X10'3 (1.8-7.7); NEUTROPHILS % (AUTO) 79.5 % (42-75); PLATELET COUNT 228 X10'3 (140-440); RED BLOOD COUNT 4.38 X10'6 (4.70-6.10); RED CELL DISTRIBUTION WIDTH 14.3 % (11.5-14.5); WHITE BLOOD COUNT 14.1 X10'3 (4.5-11.0)
--- NOTE | 2021-04-09 06:11 | NUR ---
PT TO CT
[2021-04-09] MEDS ORDERED: iohexol 300mg/ml 100ml inj. ONE (06:12)
[2021-04-09] MEDS ORDERED: normal saline 1000ML IV soln IVB ONE (06:25)
[2021-04-09] MEDS ORDERED: DOXY100C76 PO (07:59)
[2021-04-09 09:25] VITALS: BP 134/84
== END 2021-04-09 09:27 | disposition home or self-care (01) ==
LOC: ER 03:27
DX: H60.11 Cellulitis of right external ear (principal); L02.11 Cutaneous abscess of neck; R11.0 Nausea; M54.2 Cervicalgia; G40.909 Epilepsy, unspecified, not intractable, without status epilepticus; I10 Essential (primary) hypertension; E11.9 Type 2 diabetes mellitus without complications; G89.29 Other chronic pain; F12.90 Cannabis use, unspecified, uncomplicated; F11.90 Opioid use, unspecified, uncomplicated; Z87.440 Personal history of urinary (tract) infections; Z72.89 Other problems related to lifestyle; Z88.0 Allergy status to penicillin; Z79.2 Long term (current) use of antibiotics; Z79.899 Other long term (current) drug therapy
CPT/HCPCS: 36415; 70487; 80053; 83605; 84145; 85025; 96374; 99285; J2270; Q9967

== ENCOUNTER 2022-11-29 06:15 | Emergency (ER) | payer MEDICARE ==
[~2022-11-29] VITALS: Ht 177.8 cm; Wt 100.0 kg
[2022-11-29] MEDS ORDERED: HYDROcodone/acetaminophen 10/325mg tab PO ONE (07:35)
[2022-11-29 08:02] LABS: BASOPHILS # (AUTO) 0.1 X10'3 (0-0.2); BASOPHILS % (AUTO) 0.7 % (0-1); EOSINOPHILS # (AUTO) 0.2 X10'3 (0-0.9); HEMATOCRIT 42.7 % (42.0-52.0); HEMOGLOBIN 14.4 g/dl (14.0-17.9); LYMPHOCYTES # (AUTO) 2.2 X10'3 (1.1-4.8); LYMPHOCYTES % (AUTO) 20.9 % (21-51); MEAN CORPUSCULAR HEMOGLOBIN 30.5 PG (27.0-31.0); MEAN CORPUSCULAR HGB CONC 33.8 g/dL (33.0-36.5); MEAN CORPUSCULAR VOLUME 90.2 FL (78-98); MEAN PLATELET VOLUME 8.7 FL (7.4-10.4); MONOCYTES # (AUTO) 0.9 X10'3 (0-0.9); MONOCYTES % (AUTO) 8.3 % (2-12); NEUTROPHILS # (AUTO) 7.2 X10'3 (1.8-7.7); NEUTROPHILS % (AUTO) 68.1 % (42-75); PLATELET COUNT 201 X10'3 (140-440); RED BLOOD COUNT 4.73 X10'6 (4.70-6.10); RED CELL DISTRIBUTION WIDTH 14.3 % (11.5-14.5); WHITE BLOOD COUNT 10.6 X10'3 (4.5-11.0)
[2022-11-29 08:27] LABS: ALANINE AMINOTRANSFERASE 16 U/L (12-78); ALBUMIN 2.2 G/DL (3.4-5.0); ALBUMIN/GLOBULIN RATIO 0.5 (1.1-1.5); ALKALINE PHOSPHATASE 186 IU/L (46-116); ANION GAP 9 (8-16); ASPARTATE AMINO TRANSFERASE 15 U/L (10-37); BILIRUBIN,TOTAL 0.4 MG/DL (0.1-1.0); BLOOD UREA NITROGEN 31 MG/DL (7-18); BUN/CREATININE RATIO 13.2 (5.4-32.0); CALCIUM 8.6 MG/DL (8.5-10.1); CHLORIDE 104 MMOL/L (99-107); CREATININE 2.35 MG/DL (0.60-1.10); GLUCOSE 233 MG/DL (70-104); LIPASE 96 U/L (73-393); POTASSIUM 3.4 MMOL/L (3.5-5.1); SODIUM 136 MMOL/L (135-145); TOTAL CARBON DIOXIDE 22.8 MMOL/L (24-32); TOTAL PROTEIN 6.6 G/DL (6.4-8.2); eGFR 30 ML/MIN
[2022-11-29 09:11] LABS: CLARITY,URINE CLEAR (Clear); COLOR,URINE YELLOW (Yellow); GLUCOSE, URINE 500 mg/dl (Neg); KETONES,URINE NEGATIVE (Neg); LEUKOCYTE ESTERASE ,URINE NEGATIVE (Neg); NITRITES, URINE NEGATIVE (Neg); OCCULT BLOOD,URINE MODERATE (Neg); PH,URINE 6.5 (4.8-8.0); PROTEIN,URINE >=300 mg/dl (Neg); UROBILINOGEN,URINE 0.2 E.U/dL (0.2-1.0)
[2022-11-29 09:12] LABS: UA COLLECTION TYPE CLN CATCH MIDSTREAM
[2022-11-29 09:23] VITALS: BP 121/70
[2022-11-29 09:24] LABS: BACTERIA,URINE FEW /HPF (Neg); MUCUS STRANDS NONE SEEN /LPF (Neg); SQUAMOUS EPITHELIAL CELL,UR FEW /LPF (FEW); WBC,URINE 0-4 /HPF (0-4)
== END 2022-11-29 12:47 | disposition home or self-care (01) ==
LOC: ER 06:16
DX: R10.12 Left upper quadrant pain (principal); I10 Essential (primary) hypertension; E11.9 Type 2 diabetes mellitus without complications; G89.29 Other chronic pain; M54.50 Low back pain, unspecified; F17.200 Nicotine dependence, unspecified, uncomplicated; Z88.0 Allergy status to penicillin
CPT/HCPCS: 36415; 71045; 71046; 74176; 80053; 81001; 83690; 85025; 93005; 99285